=== PATIENT | female | born 1935 | race Caucasian/White ===

== ENCOUNTER → 2017-08-08 | Outpatient (CLI) | payer MEDICARE, OTHER ==
[~2017-08-08] MED LIST: AMLO10 PO; AMLO5 PO; ASCO500 PO; ASPI81EC PO; BENA20 PO; BENAML20/5 PO; CALCIUM PO; CLOP75 PO; COLE625 PO; DIVIGEL1 EAC1 TD; DOCU100 PO; ERGO400 PO; ESOM20 PO; ESZO3 PO; FEBU40TA PO; FERR325 PO; FURO40 PO; NEBI5 PO; NIAC500ER PO; OMEP20ER PO; OMEPRAZOLE MAGN20 MG PO; POLYOX WSR-3011 GM PO; PRAV20 PO; PROP120ER PO; PSYL5.85P PO; TRIHYD253A PO; TRIM100 PO; ZOLP10 PO; ZOLP5 PO
[2017-08-09 11:44] LABS: HPV Genotype 16 Not Detected (NOTDET); HPV Genotype 18 Not Detected (NOTDET)
[2017-08-11 11:14] LABS: HPV High Risk Other Not Detected (NOTDET)
== END | disposition home or self-care (01) ==
LOC: OLS 11:47
PROVIDERS: Nurse Practitioner Women's Health
DX: Z12.72 Encounter for screening for malignant neoplasm of vagina (principal); Z91.89 Other specified personal risk factors, not elsewhere classified
CPT/HCPCS: 87624; G0123

== ENCOUNTER 2017-09-14 09:04 | Observation (INO) | payer MEDICARE, OTHER ==
[~2017-09-14] VITALS: Ht 147.3 cm; Wt 59.5 kg
[~2017-09-14 09:04] MED LIST changes: -CLOP75 PO
[2017-09-14] MEDS ORDERED: CLOP75 PO (15:45)
== END 2017-09-15 10:24 | disposition home or self-care (01) ==
LOC: MHTC 09:04 → MEDS 18:22 → MHTC 18:28 → MEDS 18:29 → EDPENDDIS 09-15 09:46 → ENPENDDIS 09-15 09:46 → MEDS 09-15 10:24
DX: I70.211 Atherosclerosis of native arteries of extremities with intermittent claudication, right leg (principal); I70.8 Atherosclerosis of other arteries; E78.5 Hyperlipidemia, unspecified; I35.1 Nonrheumatic aortic (valve) insufficiency; I10 Essential (primary) hypertension; Z79.899 Other long term (current) drug therapy; Z98.890 Other specified postprocedural states; Z90.710 Acquired absence of both cervix and uterus; Z90.49 Acquired absence of other specified parts of digestive tract
CPT/HCPCS: 37224; 75710; 75774; 85347; 99152; 99153; C1725; C1769; C1887; C1894; C2623; G0378; J1644; J2250; J2720; J3010; J7030; J7040; Q9967

== ENCOUNTER → 2018-05-01 | Outpatient (CLI) | payer MEDICARE, OTHER ==
[~2018-05-01] MED LIST changes: +CLOP75 PO
[2018-05-01 11:24] LABS: BASOPHILS ABSOLUTE AUTO 0.03 K/mm3 (0.00-0.23); BASOPHILS PERCENT AUTO 0 % (0-2); EOSINOPHILS ABSOLUTE AUTO 0.26 K/mm3 (0.00-0.68); EOSINOPHILS PERCENT AUTO 3 % (0-6); Hematocrit 35.6 % (33.0-51.0); Hemoglobin 11.7 g/dL (11.5-16.0); IMMATURE GRAN ABSOLUTE AUTO 0.02 K/mm3 (0.00-0.10); IMMATURE GRAN PERCENT AUTO 0 % (0-1); LYMPHOCYTES ABSOLUTE AUTO 1.55 K/mm3 (0.84-5.20); LYMPHOCYTES PERCENT AUTO 19 % (21-46); MONOCYTES PERCENT AUTO 10 % (4-13); Mean Corpuscular HGB Conc 32.9 g/dL (31.5-36.5); Mean Corpuscular Volume 94 fL (80-100); Mean Platelet Volume 9.8 fL (9.1-12.4); NEUTROPHILS ABSOLUTE AUTO 5.73 K/mm3 (1.96-9.15); NEUTROPHILS PERCENT AUTO 68 % (41-73); Platelet Count 265 K/mm3 (150-400); RDW Coefficient Variation 13.9 % (11.7-14.2); RDW Standard Deviation 47.6 fL (35.1-46.3); Red Blood Cell Count 3.78 M/mm3 (3.80-5.20); White Blood Cell Count 8.39 K/mm3 (4.00-11.30)
[2018-05-01 11:28] LABS: Calcium, Blood 9.5 mg/dL (8.5-10.1); Creatinine, Blood 1.31 mg/dL (0.40-1.00); Potassium, Blood 3.9 mmol/L (3.5-5.5)
== END ==
LOC: LAB SHORT 11:19 → LAB EV 11:19
PROVIDERS: Physician Assistant Surgical
DX: R10.32 Left lower quadrant pain (principal)
CPT/HCPCS: 80048; 85025

== ENCOUNTER 2018-07-29 13:01 | Emergency (ER) | payer MEDICARE, OTHER ==
[~2018-07-29] VITALS: Ht 147.3 cm; Wt 52.2 kg
[2018-07-29] MEDS ORDERED: FEBU40TA (13:17)
[2018-07-29 13:35] LABS: Calcium, Ionized (POC) 1.17 mmol/L (1.10-1.46); Chloride (POC) 106 mmol/L (98-108); Creatinine (POC) 1.2 mg/dL (0.6-1.0); Glucose (ISTAT POC) 119 mg/dL (70-99); Hemoglobin (POC) 13.3 g/dL (12.0-16.0); Potassium (POC) 3.9 mmol/L (3.5-5.5); Sodium (POC) 142 mmol/L (135-148); Total CO2 (POC) 26 mmol/L (21-32)
== END 2018-07-29 16:09 | disposition home or self-care (01) ==
LOC: ER 13:01
PROVIDERS: Emergency Medicine
DX: I63.9 Cerebral infarction, unspecified (principal); F03.90 Unspecified dementia, unspecified severity, without behavioral disturbance, psychotic disturbance, mood disturbance, and anxiety; I10 Essential (primary) hypertension; E78.5 Hyperlipidemia, unspecified; Z87.891 Personal history of nicotine dependence; Z88.5 Allergy status to narcotic agent; Z88.8 Allergy status to other drugs, medicaments and biological substances; Z79.899 Other long term (current) drug therapy; Z88.1 Allergy status to other antibiotic agents
CPT/HCPCS: 36415; 70470; 80047; 85014; 96360; 96361; 99284-25; J7030; Q9967

== ENCOUNTER → 2019-01-02 | Outpatient (CLI) | payer MEDICARE, OTHER ==
[~2019-01-02] MED LIST changes: +ATOR10 PO; +Estrace Vagin42.5 GM PV; +FEBU40TA
[2019-01-03 15:06] LABS: HPV 16 Negative (Negative); HPV 18 Negative (Negative); HPV OTHER HR TYPES Negative (Negative)
== END | disposition home or self-care (01) ==
LOC: LAB 12:25 → LAB SHORT 12:25
PROVIDERS: Nurse Practitioner Women's Health
DX: Z12.72 Encounter for screening for malignant neoplasm of vagina (principal); Z91.89 Other specified personal risk factors, not elsewhere classified
CPT/HCPCS: 87624; G0123

== ENCOUNTER → 2019-07-18 | Outpatient (CLI) | payer MEDICARE, OTHER | END | disposition home or self-care (01) | LOC: LAB EV 13:55 → LAB SHORT 13:55 | DX: N39.0 Urinary tract infection, site not specified (principal) | CPT/HCPCS: 87077; 87086; 87186 ==

== ENCOUNTER → 2019-09-21 | Outpatient (CLI) | payer MEDICARE, OTHER | END | disposition home or self-care (01) | LOC: LAB EV 11:51 → LAB SHORT 11:51 | DX: N39.0 Urinary tract infection, site not specified (principal) | CPT/HCPCS: 87077; 87086; 87186 ==

== ENCOUNTER 2020-01-02 07:59 | Observation (INO) | payer MEDICARE, OTHER ==
[~2020-01-02] VITALS: Ht 147.3 cm; Wt 53.2 kg
--- NOTE | 2020-01-02 11:34 | NUR ---
PT BACK TO RECOVERY ROOM VIA DANIA AFTER PROCEDURE. ALERT AND TALKATIVE, DENIES PAIN OR NEEDS. VSS, CALL LIGHT IN REACH. PT EATING ICE CHIPS WITHOUT DIFFICULTY.
--- NOTE | 2020-01-02 12:45 | NUR ---
PT RESTING SUPINE WITH BED IN REVERSE TRENDELENBERG POSITION, RIGHT GROIN SITE APPEARS SOFT, TENDER TO PALPATE, NO ACTIVE BLEEDING OR OOZING NOTED. PT C/O MID/LOWER BACK PAIN. REPOSITIONED FOR COMFORT. TOLERATES ICE CHIPS NO DIFFICULTIES. VSS. CALL LIGHT IN REACH.
--- NOTE | 2020-01-02 14:13 | NUR ---
PT AMB TO BATHROOM WITH SBA, GAIT STEADY; SITE UNCHANGED WITH ACTIVITY. PT REPORTED MOD SOB WITH ACTIVITY RESOLVED AFTER 2-3 MIN OF REST, SPO2 93-94% RA.
--- NOTE | 2020-01-02 14:30 | NUR ---
UPON GETTING UP TO WHEELCHAIR, PT STARTED TO HAVE AUDIBLE WHEEZES. DR YANEZ NOTIFIED, WILL COME AND ASSESS PATIENT PRIOR TO DISCHARGE. SPO2 CURRENTLY 92% ON ROOM AIR.
--- NOTE | 2020-01-02 14:44 | NUR ---
BASEBALL SIZED AMOUNT OF SWELLING AND TENDERNESS NOTED TO PT'S INNER LEFT THIGH. DR YANEZ ASSESSED AND PALPATED AREA, EXPLAINED TO PATIENT THAT A SMALL WIRE PERFORATION MAY HAVE HAPPENED AND INSTRUCTED PATIENT TO USE WARM COMPRESSES AT HOME AND CALL THE OFFICE IF AREA GROWS OR BECOMES MORE PAINFUL.
--- NOTE | 2020-01-02 14:55 | NUR ---
DR YANEZ AT BEDSIDE, PT RECEIVING BREATHING TREATMENT PER ORDERS. SPO2 CURRENTLY 99% ON O2 AT 2L/MIN VIA NC. PT CONTINUES TO HAVE INCREASED RESPIRATORY EFFORT. WAITING TO HAVE PORTABLE CHEST X-RAY.
--- NOTE | 2020-01-02 15:10 | NUR ---
ARCHITECTURAL RENDERER AT BEDSIDE FOR PORTABLE CHEST X-RAY
--- NOTE | 2020-01-02 15:50 | NUR ---
DR PATHAK AT BEDSIDE FOR ADMIT ASSESSMENT.
[2020-01-02 16:02] LABS: BASOPHILS ABSOLUTE AUTO 0.02 K/mm3 (0.00-0.23); BASOPHILS PERCENT AUTO 0 % (0-2); EOSINOPHILS ABSOLUTE AUTO 0.22 K/mm3 (0.00-0.68); EOSINOPHILS PERCENT AUTO 3 % (0-6); Hematocrit 36.3 % (33.0-51.0); Hemoglobin 10.9 g/dL (11.5-16.0); IMMATURE GRAN ABSOLUTE AUTO 0.03 K/mm3 (0.00-0.10); IMMATURE GRAN PERCENT AUTO 0 % (0-1); LYMPHOCYTES ABSOLUTE AUTO 1.51 K/mm3 (0.84-5.20); LYMPHOCYTES PERCENT AUTO 18 % (21-46); MONOCYTES ABSOLUTE AUTO 0.41 K/mm3 (0.16-1.47); MONOCYTES PERCENT AUTO 5 % (4-13); Mean Corpuscular HGB 29.2 pg (26.0-34.0); Mean Platelet Volume 9.5 fL (9.1-12.4); NEUTROPHILS ABSOLUTE AUTO 6.13 K/mm3 (1.96-9.15); NEUTROPHILS PERCENT AUTO 74 % (41-73); Platelet Count 219 K/mm3 (150-400); RDW Coefficient Variation 14.3 % (11.7-14.2); RDW Standard Deviation 50.7 fL (35.1-46.3); Red Blood Cell Count 3.73 M/mm3 (3.80-5.20); White Blood Cell Count 8.32 K/mm3 (4.00-11.30)
[2020-01-02 16:06] LABS: Mean Corpuscular Volume 97 fL (80-100)
--- NOTE | 2020-01-02 16:33 | NUR ---
ASSUMED CARE PT [facility]. SHE HAD AN ANGIO THIS MORNING WHICH RESULTED IN FLASH PULMONARY EDEMA. HEART CENTER NURSE POINTED OUT THAT THE PT HAS HEMATOMA FORMATION IN LEFT UPPER THIGH. THE ANGIO SITE IS RIGHT FEMORAL. HEART [facility]ENTER NURSE TOOK PT OFF HER 02. PT HAD AUDIBLE WHEEZES BUT STATED THAT SHE WAS FEELING MUCH BETTER. DR. CARDENAS CAME TO TALK TO THE PT AND PUT IN AN ORDER FOR LASIX. PT WAS CALM AND COOPERATIVE WITH HER CARE.
[2020-01-02 16:35] LABS: Albumin, Blood 3.1 g/dL (3.4-5.0); Albumin/Globulin Ratio 0.8 (0.8-1.8); Bilirubin, Total 0.6 mg/dL (0.1-1.0); Calcium, Blood 8.3 mg/dL (8.5-10.1); Creatinine, Blood 1.47 mg/dL (0.40-1.00); Globulin, Blood 3.7 g/dL (2.2-4.0); Potassium, Blood 4.3 mmol/L (3.5-5.5); Total Protein, Blood 6.8 g/dL (6.4-8.2)
--- NOTE | 2020-01-02 18:30 | NUR ---
ECHO AND ULTRASOUND CAME TO SEE PT. WHEN ULTRASOUND GOT DONE PT STARTED HAVING LOUD AUDIBLE WHEEZING. 02 WAS PUT ON AT 2L. HOB WAS RAISED AND PT STARTED COMPLAINING OF RESTLESSNESS. 02 SAT WAS CHECKED AND REPORTED IN THE 70'S. RT WAS CALLED AND PUT PT ON BIPAP AT 12/8 AND 40% O2. NURSE CALLED DR. PATHAK WHO PUT IN ONE TIME ORDER FOR LASIX.
--- NOTE | 2020-01-02 18:52 | NUR ---
echocardiogram complete
--- NOTE | 2020-01-02 21:36 | NUR ---
PATIENT NAUSEOUS AND IV ZOFRAN GIVEN. ON BIPAP. PATIENT ABLE TO TAKE A FEW PO MEDS WITH APPLE SAUCE AFTER IV ZOFRAN. PATIENT DID BECOME NAUSEOUS AGAIN WITH EMESIS. BIPAP TAKEN OFF AND BACK TO O2 5L NC. PATIENT RESTING AT THIS TIME.
--- NOTE | 2020-01-03 00:27 | NUR ---
PATIENT RESTING AND REPORTS N/V RESOLVED AT THIS TIME. ON 5L O2 NC. NO CONCERNS AND RT TOOK BIPAP FOR CLEANING AT THIS TIME. CALL LIGHT IN REACH.
--- NOTE | 2020-01-03 04:24 | NUR ---
SHIFT SUMMARY PATIENT NAUSEOUS AFTER SHIFT STARTED. IV ZOFRAN GIVEN PER EMAR. PATIENT REPORTED ABLE TO TAKE PO MED AFTER THIRTY MINUTES AND WAS NAUSEOUS AGAIN WITH EMESIS. BIPAP REMOVED AND PLACED ON 5L O2 NC. RT IN TO TEST DRIVER BIPAP TO CLEAN, AXOX 3 AND SBA TO BSC ON LASIX. PIV REMAINS INTACT. GROUP LEADER WAFER POLISHING REPORTS SB 50'S. PATIENT LESS NAUSEOUS THE REST OF SHIFT AND ABLE TO SLEEP. COOPERATIVE WITH CARE. DENIES PAIN. VSS/AFEBRILE. CALL LIGHT IN REACH. BED IN LOWEST POSITION. WILL CONTINUE TO MONITOR UNTIL DAY SHIFT NURSE ASSUMES CARE.
[2020-01-03 04:48] LABS: BASOPHILS ABSOLUTE AUTO 0.02 K/mm3 (0.00-0.23); BASOPHILS PERCENT AUTO 0 % (0-2); EOSINOPHILS ABSOLUTE AUTO 0.02 K/mm3 (0.00-0.68); EOSINOPHILS PERCENT AUTO 0 % (0-6); Hematocrit 36.2 % (33.0-51.0); Hemoglobin 11.2 g/dL (11.5-16.0); IMMATURE GRAN ABSOLUTE AUTO 0.04 K/mm3 (0.00-0.10); IMMATURE GRAN PERCENT AUTO 0 % (0-1); LYMPHOCYTES ABSOLUTE AUTO 1.21 K/mm3 (0.84-5.20); LYMPHOCYTES PERCENT AUTO 11 % (21-46); MONOCYTES ABSOLUTE AUTO 0.64 K/mm3 (0.16-1.47); MONOCYTES PERCENT AUTO 6 % (4-13); Mean Corpuscular HGB 29.4 pg (26.0-34.0); Mean Corpuscular HGB Conc 30.9 g/dL (31.5-36.5); Mean Corpuscular Volume 95 fL (80-100); Mean Platelet Volume 9.4 fL (9.1-12.4); NEUTROPHILS ABSOLUTE AUTO 8.85 K/mm3 (1.96-9.15); NEUTROPHILS PERCENT AUTO 82 % (41-73); Platelet Count 212 K/mm3 (150-400); RDW Coefficient Variation 14.3 % (11.7-14.2); RDW Standard Deviation 50.6 fL (35.1-46.3); Red Blood Cell Count 3.81 M/mm3 (3.80-5.20); White Blood Cell Count 10.78 K/mm3 (4.00-11.30)
[2020-01-03 05:10] LABS: Albumin, Blood 3.2 g/dL (3.4-5.0); Anion Gap 4 mmol/L (6-16); Blood Urea Nitrogen 22 mg/dL (8-24); Bun/Creatinine Ratio 15.5 (12.0-20.0); CO2, Blood 29 mmol/L (21-32); Calcium, Blood 8.2 mg/dL (8.5-10.1); Chloride, Blood 110 mmol/L (98-108); Creatinine, Blood 1.42 mg/dL (0.40-1.00); Glomerular Filtration Rate 38 (60-); Glucose, Blood 114 mg/dL (70-99); Magnesium, Blood 2.2 mg/dL (1.6-2.4); Phosphorus, Blood 4.1 mg/dL (2.5-4.9); Potassium, Blood 3.8 mmol/L (3.5-5.5); Sodium, Blood 143 mmol/L (136-145)
--- NOTE | 2020-01-03 07:47 | NUR ---
ASSUMED CARE AT 0700, REPORT FROM ANTONIA GATES. SITTING IN BED IN HIGH FOWLERS. A/A/OX4. 5L O2 VIA NC. L/S CLEAR THROUGH OUT. RIGHT GROIN ANGIO SITE DRY AND TEGADERM IN PLACE. LEFT LEG WARM CAP REFILL <3, DENIES PAIN OR NUMBNESS. SWELLING TO LEFT INNER THIGH CIRCLED WITH SKIN MARKER FROM PROCEDURE YESTERDAY. NO REDNESS EXTENDING BEYOND SKIN MARKER, AREA FIRM. PT STATES WAS TOLD IS A BLOOD CLOT. PLAN OF CARE REVIEWED WITH PT. 02 DECREASED TO 3L VIA NC, WILL CONTINUE TO MONITOR.
--- NOTE | 2020-01-03 11:59 | NUR ---
O2 DECREASED TO 1L NC PER DR. PATHAK, TOLERATING WELL 94% AT THIS TIME.
[2020-01-03] MEDS ORDERED: Aspir 8181 MG PO (15:07)
[2020-01-03] MEDS ORDERED: CLOP75 PO (15:08)
[2020-01-03] MEDS ORDERED: AMLO5 PO (15:44)
--- NOTE | 2020-01-03 15:55 | NUR ---
DISCHARGE INSTRUCTIONS REVIEWED VIA TELEPHONE WITH GRANDDAUGHTER. DISCUSSED HEATING PAD TO HEMATOMA ON LEFT INNER THIGH. SWELLING DECREASED THROUGHOUT DAY AND NOW SHOWING DISCOLORATION. INSTRUCTIONS GIVEN TO GRANDDAUGHTER YESTERDAY BY [facility]ART [facility] FOR SAME. RX FAXED TO [facility].
== END 2020-01-03 16:22 | disposition home or self-care (01) ==
LOC: PCU 07:59 → MHTC 07:59 → PCU 16:02 → MHTC 16:03 → PCU 01-03 03:03
PROVIDERS: Internal Medicine; ADMIT Radiology Diagnostic Radiology
DX: J96.00 Acute respiratory failure, unspecified whether with hypoxia or hypercapnia (principal); I11.0 Hypertensive heart disease with heart failure; I50.9 Heart failure, unspecified; N18.3 Chronic kidney disease, stage 3 (moderate); N17.9 Acute kidney failure, unspecified; I70.211 Atherosclerosis of native arteries of extremities with intermittent claudication, right leg; E88.09 Other disorders of plasma-protein metabolism, not elsewhere classified; D63.1 Anemia in chronic kidney disease; I35.1 Nonrheumatic aortic (valve) insufficiency; R54 Age-related physical debility; K21.9 Gastro-esophageal reflux disease without esophagitis; Z88.1 Allergy status to other antibiotic agents; Z88.5 Allergy status to narcotic agent; Z88.8 Allergy status to other drugs, medicaments and biological substances; Z79.899 Other long term (current) drug therapy
CPT/HCPCS: 36415; 37221; 37225; 37228; 37232; 71045; 75625; 75716; 75774; 76770; 80053; 80069; 83735; 83880; 84484; 85025; 85347; 93306; 94640; 94660; 94762; 96374; 99152; 99153; A9270-GY; C1714; C1725; C1760; C1769; C1874; C1884; C1887; C1894; C2623; G0378; J1644; J1940; J2250; J2405; J3010; J7030; Q9967

== ENCOUNTER → 2020-06-26 | Outpatient (CLI) | payer MEDICARE, OTHER ==
[~2020-06-26] MED LIST changes: +Aspir 8181 MG PO; +FERROUS GLUCON324 M2 PO; +LIPITOR10 MG PO
== END | disposition home or self-care (01) ==
LOC: LAB SHORT 16:23 → LAB EV 16:23
DX: N39.0 Urinary tract infection, site not specified (principal)
CPT/HCPCS: 87077; 87086; 87186

== ENCOUNTER → 2020-08-28 | Outpatient (CLI) | payer MEDICARE, OTHER | END | disposition home or self-care (01) | LOC: LAB 12:45 → LAB SHORT 12:45 | DX: R35.0 Frequency of micturition (principal) | CPT/HCPCS: 87077; 87086; 87186 ==

== ENCOUNTER 2022-06-19 13:09 | Inpatient (IN) | payer MEDICARE, OTHER ==
[~2022-06-19] VITALS: Ht 147.3 cm; Wt 53.6 kg
[~2022-06-19 13:09] MED LIST changes: +ELIQUIS2.5 MG PO; +LISI5 PO; +METO25ER PO; +XANAX0.25 MG PO
[2022-06-19 13:59] LABS: BASOPHILS ABSOLUTE AUTO 0.02 K/mm3 (0.00-0.23); BASOPHILS PERCENT AUTO 0 % (0-2); EOSINOPHILS ABSOLUTE AUTO 0.03 K/mm3 (0.00-0.68); EOSINOPHILS PERCENT AUTO 0 % (0-6); IMMATURE GRAN ABSOLUTE AUTO 0.03 K/mm3 (0.00-0.10); IMMATURE GRAN PERCENT AUTO 0 % (0-1); LYMPHOCYTES ABSOLUTE AUTO 0.87 K/mm3 (0.84-5.20); LYMPHOCYTES PERCENT AUTO 13 % (21-46); MONOCYTES ABSOLUTE AUTO 0.46 K/mm3 (0.16-1.47); MONOCYTES PERCENT AUTO 7 % (4-13); Mean Corpuscular HGB 23.3 pg (26.0-34.0); Mean Corpuscular HGB Conc 29.5 g/dL (31.5-36.5); Mean Corpuscular Volume 79 fL (80-100); Mean Platelet Volume 9.4 fL (9.1-12.4); NEUTROPHILS ABSOLUTE AUTO 5.28 K/mm3 (1.96-9.15); NEUTROPHILS PERCENT AUTO 79 % (41-73); Platelet Count 354 K/mm3 (150-400); RDW Coefficient Variation 16.4 % (11.7-14.2); RDW Standard Deviation 47.7 fL (35.1-46.3); Red Blood Cell Count 1.89 M/mm3 (3.80-5.20); White Blood Cell Count 6.69 K/mm3 (4.00-11.30)
[2022-06-19 14:00] LABS: Hematocrit 14.9 % (33.0-51.0)
[2022-06-19 14:03] LABS: Hemoglobin 4.4 g/dL (11.5-16.0)
[2022-06-19 14:28] LABS: Albumin, Blood 3.4 g/dL (3.4-5.0); Albumin/Globulin Ratio 0.9 (0.8-1.8); Bilirubin, Total 0.4 mg/dL (0.1-1.0); Calcium, Blood 8.8 mg/dL (8.5-10.1); Creatinine, Blood 2.05 mg/dL (0.40-1.00); Globulin, Blood 3.7 g/dL (2.2-4.0); Potassium, Blood 4.2 mmol/L (3.5-5.5); Total Protein, Blood 7.1 g/dL (6.4-8.2)
[2022-06-19 14:44] LABS: International Normalized Ratio 1.13; Prothrombin Time Results 11.8 Sec (9.7-11.5)
[2022-06-19 16:39] LABS: Percent Saturation 2.4 % (15.0-50.0)
--- NOTE | 2022-06-19 18:39 | NUR ---
PT ARRIVED IN THE UNIT FROMERD REPORT RECEIVED FROM NICANOR KNIGHT. PT IS ALERT AND ORIENTED X3, CAN BE FORGETFUL AT TIMES, MILD LYTTON. PT IS HERE FOR GI BLEED POSITIVE HEMOCCULT AND TO RECEIVED 3U PRBC HGB WAS AT 4.4 IN THE ER. PT WAS ABLE TO AMBULATE TRANSFER ASSISTED TO PCU BED. PT DENIES ANY KIND OF PAIN UPON ARRIVAL OR ANY KIND OF SYMPTOMS EXCEPT BLACK STOOLS, PT LOOKING PALE. FIRST BAG OF PRBC INFUSING AT THIS TIME WAS STARTED IN THE ER. VITALS HRR SR 980'S, SBP 130'S-140'S, SATS ABOVE 95% ONRA, AFEBRILE. GI CONSULTED, PT ON CLEAR LIQUID DIET FOR NOW. PROTONIX GTT INFUSING WELL. PT NOW RESTING IN BED NO OTHER ISSUES ENCOUNTERED. PT ABLE TO MAKE NEEDS KNOWN, COOPERATIVE WITH CARES, WILL REPORT TO ONCOMING SHIFT
--- NOTE | 2022-06-19 20:35 | NUR ---
ASSUMPTION OF CARE THIS RN ASSUMED CARE OF PT AT 1915; PT AWAKE IN BED, INTERACTING AND RESPONDING APPROPRIATELY. A&O TO SELF, PLACE AND SURROUNDING, ALTHOUGH MILDLY CONFUSED ABOUT EVENT. PT STATED SHE THOUGHT SHE WAS IN THE HOSPITAL FOR HER LEG. THIS RN REORIENTED HER AND EXPLAINED WHAT BROUGHT HER IN. FIRST BLOOD TRANSFUSION CURRENTLY INFUSING. VSS; BP 117/61, HR 80. RR 17, 02 97%. TEMP 97.4. PROTONIX GTT INFUSING PER EMAR. PT DENIES SOB, N/V, OR ANY PAIN. PT COLOR APPEARS TO BE NORMAL, ALTHOUGH CONJUNCTIVA IS PALE IN COLOR. NO DISTRESS NOTED. PT COMPLAINS OF R LEG PAIN FROM KNEE DOWN INTO HER TOES AND STATES BOTTOM OF FOOT IS NUMB. STATES THIS IS NOT NEW SINCE BEING AT HOSPITAL BUT IS BOTHERING HER ALOT. STATES SHE WOULD LIKE TO KNOW WHAT IS GOING ON WITH IT. CALL LIGHT IN REACH.
[2022-06-20 02:07] LABS: Hematocrit 22.6 % (33.0-51.0); Hemoglobin 7.6 g/dL (11.5-16.0)
--- NOTE | 2022-06-20 05:54 | NUR ---
SHIFT SUMMARY PT A&O X2-3. PT IS FORGETFUL AND HAS PERIODS OF CONFUSION, ALTHOUGH PLEASANTLY CONFUSED. EASILY REDIRECTED AND REORIENTED. PT HAD HARD TIME SLEEPING LAST NIGHT DESPITE SLEEP AIDS PER EMAR. PT COMPLAINS OF R FOOT PAIN. PT RECIEVED 3 UNITS OF PRBCS; VSS THROUGHOUT. PT SEEMS TO HAVE TOLERATED TRANSFUSIONS WELL. PROTONIX GTT INFUSING PER EMAR. PT UP TO BSC W/MINIMAL ASSISTANCE. THIS RN NOTED SMALL AMOUNT OF BLOOD ON TISSUE PAPER AFTER PT VOIDED AND WIPED; URINE HAD MILDLY FOUL ODOR AND APPEARED HAZY. WILL PASS ON TO DAYSHIFT NURSE. PG IN R UA DRAWS AND FLUSHES, CURRENTLY INFUSING AND FINISHING LAST UNIT OF BLOOD. BED ALARM SET AND CALL LIGHT IN REACH.
[2022-06-20 07:24] LABS: BASOPHILS ABSOLUTE AUTO 0.03 K/mm3 (0.00-0.23); BASOPHILS PERCENT AUTO 0 % (0-2); EOSINOPHILS ABSOLUTE AUTO 0.11 K/mm3 (0.00-0.68); EOSINOPHILS PERCENT AUTO 1 % (0-6); Hematocrit 26.4 % (33.0-51.0); IMMATURE GRAN ABSOLUTE AUTO 0.08 K/mm3 (0.00-0.10); IMMATURE GRAN PERCENT AUTO 1 % (0-1); LYMPHOCYTES ABSOLUTE AUTO 1.16 K/mm3 (0.84-5.20); LYMPHOCYTES PERCENT AUTO 14 % (21-46); MONOCYTES ABSOLUTE AUTO 0.56 K/mm3 (0.16-1.47); MONOCYTES PERCENT AUTO 7 % (4-13); Mean Corpuscular HGB 27.3 pg (26.0-34.0); Mean Corpuscular HGB Conc 34.1 g/dL (31.5-36.5); Mean Corpuscular Volume 80 fL (80-100); Mean Platelet Volume 9.1 fL (9.1-12.4); NEUTROPHILS ABSOLUTE AUTO 6.39 K/mm3 (1.96-9.15); NEUTROPHILS PERCENT AUTO 77 % (41-73); Platelet Count 293 K/mm3 (150-400); RDW Coefficient Variation 15.9 % (11.7-14.2); RDW Standard Deviation 45.9 fL (35.1-46.3); White Blood Cell Count 8.33 K/mm3 (4.00-11.30)
[2022-06-20 07:46] LABS: Bun/Creatinine Ratio 16.3 (12.0-20.0); Calcium, Blood 8.7 mg/dL (8.5-10.1); Creatinine, Blood 2.09 mg/dL (0.40-1.00); Potassium, Blood 3.9 mmol/L (3.5-5.5)
--- NOTE | 2022-06-20 14:04 | NUR ---
pt update day surgery in room to take pt to scope. pt asked that her grandson iqra, be called, and to let him know she wants to see him when she wakes up. Call placed to phone number given for grandson, phone when to voicemail. will continue to try.
[2022-06-20] MEDS ORDERED: AMLODIPINE BESYL5 MG PO (14:45)
[2022-06-20] MEDS ORDERED: Ventolin/Prove6.7 GM INH (14:46)
--- NOTE | 2022-06-20 14:58 | NUR ---
06/20/22 1458 Namrata Lopez WITH ; SEE ANESTHESIA RECORDS.
--- NOTE | 2022-06-20 17:55 | NUR ---
SHIFT SUMMARY THIS RN SPOKE TO RO CHERRY. RO AND FAMILY VISITED PT THIS EVENING. PT OVERJOYED. PT ALERT BUT SOMEWHAT FORGETFUL. SP02>90% ON RA. VSS. PT DID HAVE 2 SOFT, SMALL BROWN BMS. AMBULATED TO BATHROOM TO VOID/BM. BLADDER SCAN SHOWED <100 MLS. PT C/O OF A HEADACHE. MEDICATED W/ TYLENOL X1. PT WENT DOWN FOR ENDOSCOPY THIS AFTERNOON. BACK IN ROOM AROUND 1700. PT AMBULATED W/ 2 RN ASSIST FROM SURGERY STRETCHER TO PCU BED. VSS. FLUIDS STARTED PER EMAR. CALL LIGHT IN REACH.
[2022-06-20 23:58] LABS: Source, Urine Voided
[2022-06-21 00:14] LABS: Appearance, Urine Hazy (Clear); Bilirubin, Urine Neg (Neg); Blood, Urine 2+ (Neg); Color, Urine Yellow (P-Yellow); Glucose Qualitative, Urine Neg (Neg); Ketones, Urine Neg (Neg); Leukocyte Esterase, Urine 3+ (Neg); Nitrite, Urine Neg (Neg); Protein, Urine 2+ (Neg); Urobilinogen, Urine NORM (Normal)
[2022-06-21 00:29] LABS: Bacteria Many /hpf; Squamous Epithelial Cells Few /hpf (Few)
[2022-06-21 05:28] LABS: BASOPHILS ABSOLUTE AUTO 0.04 K/mm3 (0.00-0.23); BASOPHILS PERCENT AUTO 0 % (0-2); EOSINOPHILS ABSOLUTE AUTO 0.03 K/mm3 (0.00-0.68); EOSINOPHILS PERCENT AUTO 0 % (0-6); Hematocrit 27.9 % (33.0-51.0); Hemoglobin 9.1 g/dL (11.5-16.0); IMMATURE GRAN ABSOLUTE AUTO 0.11 K/mm3 (0.00-0.10); IMMATURE GRAN PERCENT AUTO 1 % (0-1); LYMPHOCYTES ABSOLUTE AUTO 1.05 K/mm3 (0.84-5.20); LYMPHOCYTES PERCENT AUTO 8 % (21-46); MONOCYTES ABSOLUTE AUTO 0.72 K/mm3 (0.16-1.47); MONOCYTES PERCENT AUTO 5 % (4-13); Mean Corpuscular HGB 26.6 pg (26.0-34.0); Mean Corpuscular HGB Conc 32.6 g/dL (31.5-36.5); Mean Corpuscular Volume 82 fL (80-100); Mean Platelet Volume 9.1 fL (9.1-12.4); NEUTROPHILS ABSOLUTE AUTO 11.97 K/mm3 (1.96-9.15); NEUTROPHILS PERCENT AUTO 86 % (41-73); NRBC ABSOLUTE 0.04 K/mm3 (0.00-0.02); NRBC Auto 0.3 /100 WBC (0.0-0.2); Platelet Count 290 K/mm3 (150-400); RDW Coefficient Variation 16.3 % (11.7-14.2); RDW Standard Deviation 48.4 fL (35.1-46.3); Red Blood Cell Count 3.42 M/mm3 (3.80-5.20); White Blood Cell Count 13.92 K/mm3 (4.00-11.30)
--- NOTE | 2022-06-21 05:51 | NUR ---
SHIFT SUMMARY VSS. PT RESTLESS AND UP TO BSC VERY FREQUENTLY, STATES "HAS TO PEE ALOT" AND "FEELS LIKE I NEED TO PEE". PT IS VOIDING VERY SMALL AMOUNTS, FREQUENTLY, AT TIMES NOT VOIDING AT ALL DESPITE FEELING THE NEED TO VOID. DENIES DYSURIA OR BURING. ODOR NOTED FROM URINE AND APPEARS HAZY. ORDER FOR UA W.CULTURE. OTHER THAN ABOVE CONCERNS, NO ACUTE CHANGES DURING SHIFT. PT NOW FINALLY RESTING AND CALL LIGHT IN REACH. LAST PART OF SHIFT, PT NOT USING CALL LIGHT, BUT RATHER GETTING UP WITH CALLING OR NOTIFYING STAFF. BED ALARM SET AND PT REMINDED TO USE CALL LIGHT FOR SAFETY. NS STILL INFUSING PER EMAR.
[2022-06-21 06:00] LABS: Albumin, Blood 2.9 g/dL (3.4-5.0); Anion Gap 8 mmol/L (6-16); Blood Urea Nitrogen 25 mg/dL (8-24); Bun/Creatinine Ratio 14.4 (12.0-20.0); CO2, Blood 25 mmol/L (21-32); Calcium, Blood 8.7 mg/dL (8.5-10.1); Chloride, Blood 109 mmol/L (98-108); Creatinine, Blood 1.74 mg/dL (0.40-1.00); Glomerular Filtration Rate 28 (60-); Glucose, Blood 122 mg/dL (70-99); Phosphorus, Blood 3.1 mg/dL (2.5-4.9); Potassium, Blood 3.2 mmol/L (3.5-5.5); Sodium, Blood 142 mmol/L (136-145)
[2022-06-21] MEDS ORDERED: MELATONIN5 M1 PO (12:14)
[2022-06-21] MEDS ORDERED: VISBIOME 112.51 EACH PO (12:45)
[2022-06-21] MEDS ORDERED: CEPH250A PO (12:45)
== END 2022-06-21 13:14 | disposition home or self-care (01) | DRG 811 ==
LOC: ER 13:09 → PCU 16:10
PROVIDERS: Emergency Medicine; Internal Medicine; Student in an Organized Health Care Education/Training Program; ADMIT Family Medicine
PROC: 30233N1 Transfusion of Nonautologous Red Blood Cells into Peripheral Vein, Percutaneous Approach (ICD-10-PCS; 2022-06-19)
PROC: 0DJD8ZZ Inspection of Lower Intestinal Tract, Via Natural or Artificial Opening Endoscopic (ICD-10-PCS; principal; 2022-06-20 15:15)
DX: D50.0 Iron deficiency anemia secondary to blood loss (chronic) (principal); K31.811 Angiodysplasia of stomach and duodenum with bleeding; I13.0 Hypertensive heart and chronic kidney disease with heart failure and stage 1 through stage 4 chronic kidney disease, or unspecified chronic kidney disease; N17.9 Acute kidney failure, unspecified; E87.6 Hypokalemia; N18.30 Chronic kidney disease, stage 3 unspecified; D63.1 Anemia in chronic kidney disease; Z66 Do not resuscitate; R19.5 Other fecal abnormalities; I73.9 Peripheral vascular disease, unspecified; I48.91 Unspecified atrial fibrillation; E78.5 Hyperlipidemia, unspecified; K44.9 Diaphragmatic hernia without obstruction or gangrene; K21.9 Gastro-esophageal reflux disease without esophagitis; I50.9 Heart failure, unspecified; K57.90 Diverticulosis of intestine, part unspecified, without perforation or abscess without bleeding; R94.31 Abnormal electrocardiogram [ECG] [EKG]; K22.710 Barrett's esophagus with low grade dysplasia; B96.20 Unspecified Escherichia coli [E. coli] as the cause of diseases classified elsewhere; Z88.1 Allergy status to other antibiotic agents; Z79.899 Other long term (current) drug therapy; Z79.01 Long term (current) use of anticoagulants; Z88.5 Allergy status to narcotic agent; Z79.811 Long term (current) use of aromatase inhibitors; Z98.890 Other specified postprocedural states; Z90.710 Acquired absence of both cervix and uterus; Z90.49 Acquired absence of other specified parts of digestive tract; Z85.42 Personal history of malignant neoplasm of other parts of uterus; Z87.891 Personal history of nicotine dependence; Z79.51 Long term (current) use of inhaled steroids; Z79.02 Long term (current) use of antithrombotics/antiplatelets
CPT/HCPCS: 36415; 80048; 80053; 80069; 81001; 82607; 82728; 82746; 83540; 83550; 84484; 85014; 85018; 85025; 85610; 85730; 86850; 86900; 86901; 86923; 87077; 87086; 87186; 93005; 93010; A9270; C1751; C9113; J2704; J2916; J7030; J7120; P9016

== ENCOUNTER 2022-06-22 00:44 | Day surgery (SDC) | payer MEDICARE, OTHER ==
[~2022-06-22 00:44] MED LIST changes: +AMLODIPINE BESYL5 MG PO; +CEPH250A PO; +MELATONIN5 M1 PO; +VISBIOME 112.51 EACH PO; +Ventolin/Prove6.7 GM INH
== END 2022-06-22 13:13 | disposition home or self-care (01) ==
LOC: ATC 00:44
DX: D50.9 Iron deficiency anemia, unspecified (principal); I12.9 Hypertensive chronic kidney disease with stage 1 through stage 4 chronic kidney disease, or unspecified chronic kidney disease; E78.5 Hyperlipidemia, unspecified; K21.9 Gastro-esophageal reflux disease without esophagitis; Z88.5 Allergy status to narcotic agent; Z88.1 Allergy status to other antibiotic agents; N18.30 Chronic kidney disease, stage 3 unspecified; N17.9 Acute kidney failure, unspecified; Z66 Do not resuscitate
CPT/HCPCS: J2916

== ENCOUNTER 2022-06-23 02:04 | Day surgery (SDC) | payer MEDICARE, OTHER | END 2022-06-23 12:38 | disposition home or self-care (01) | LOC: ATC 02:04 | DX: D50.9 Iron deficiency anemia, unspecified (principal); I12.9 Hypertensive chronic kidney disease with stage 1 through stage 4 chronic kidney disease, or unspecified chronic kidney disease; N18.30 Chronic kidney disease, stage 3 unspecified; I73.9 Peripheral vascular disease, unspecified; K21.9 Gastro-esophageal reflux disease without esophagitis; I48.91 Unspecified atrial fibrillation; Z88.1 Allergy status to other antibiotic agents; Z88.5 Allergy status to narcotic agent; Z79.02 Long term (current) use of antithrombotics/antiplatelets; Z79.01 Long term (current) use of anticoagulants; Z66 Do not resuscitate | CPT/HCPCS: J2916 ==

== ENCOUNTER 2022-06-24 00:13 | Day surgery (SDC) | payer MEDICARE, OTHER | END 2022-06-24 15:10 | disposition home or self-care (01) | LOC: ATC 00:13 | DX: D50.9 Iron deficiency anemia, unspecified (principal); I12.9 Hypertensive chronic kidney disease with stage 1 through stage 4 chronic kidney disease, or unspecified chronic kidney disease; N18.30 Chronic kidney disease, stage 3 unspecified; I73.9 Peripheral vascular disease, unspecified; K21.9 Gastro-esophageal reflux disease without esophagitis; I48.91 Unspecified atrial fibrillation; Z88.1 Allergy status to other antibiotic agents; Z88.5 Allergy status to narcotic agent; Z66 Do not resuscitate | CPT/HCPCS: J2916 ==

== ENCOUNTER 2023-01-09 03:13 | Inpatient (IN) | payer MEDICARE, OTHER ==
[~2023-01-09] VITALS: Ht 147.3 cm; Wt 46.5 kg
[2023-01-09] VITALS (10 sets, daily range): BP systolic 128–156; BP diastolic 2–102
[2023-01-09 03:58] LABS: BASOPHILS ABSOLUTE AUTO 0.03 K/mm3 (0.00-0.23); BASOPHILS PERCENT AUTO 0 % (0-2); EOSINOPHILS ABSOLUTE AUTO 0.08 K/mm3 (0.00-0.68); EOSINOPHILS PERCENT AUTO 1 % (0-6); Hematocrit 40.2 % (33.0-51.0); Hemoglobin 13.1 g/dL (11.5-16.0); IMMATURE GRAN ABSOLUTE AUTO 0.04 K/mm3 (0.00-0.10); IMMATURE GRAN PERCENT AUTO 0 % (0-1); LYMPHOCYTES ABSOLUTE AUTO 1.54 K/mm3 (0.84-5.20); LYMPHOCYTES PERCENT AUTO 16 % (21-46); MONOCYTES ABSOLUTE AUTO 0.64 K/mm3 (0.16-1.47); MONOCYTES PERCENT AUTO 7 % (4-13); Mean Corpuscular HGB Conc 32.6 g/dL (31.5-36.5); Mean Corpuscular Volume 95 fL (80-100); Mean Platelet Volume 9.6 fL (9.1-12.4); NEUTROPHILS ABSOLUTE AUTO 7.29 K/mm3 (1.96-9.15); NEUTROPHILS PERCENT AUTO 76 % (41-73); Platelet Count 338 K/mm3 (150-400); RDW Coefficient Variation 15.8 % (11.7-14.2); RDW Standard Deviation 54.4 fL (35.1-46.3); Red Blood Cell Count 4.23 M/mm3 (3.80-5.20); White Blood Cell Count 9.62 K/mm3 (4.00-11.30)
[2023-01-09 04:09] LABS: Albumin/Globulin Ratio 0.7 (0.8-1.8); Bilirubin, Total 0.8 mg/dL (0.1-1.0); Bun/Creatinine Ratio 26.9 (12.0-20.0); Calcium, Blood 9.1 mg/dL (8.5-10.1); Creatinine, Blood 2.12 mg/dL (0.40-1.00); Globulin, Blood 4.2 g/dL (2.2-4.0); Potassium, Blood 3.6 mmol/L (3.5-5.5); Total Protein, Blood 7.2 g/dL (6.4-8.2)
[2023-01-09 04:59] LABS: Magnesium, Blood 2.6 mg/dL (1.6-2.4)
[2023-01-09 09:14] LABS: Bicarbonate Venous 19.7 mmol/L (24.0-30.0); PCO2 Venous 42.7 mmHg (38-42); pH Blood Venous 7.31 (7.34-7.37)
[2023-01-09 09:26] LABS: Anti-Xa UFH, PHA Monitoring <0.10 IU/mL; International Normalized Ratio 1.14; Prothrombin Time Results 11.9 Sec (9.7-11.5)
--- NOTE | 2023-01-09 14:19 | NUR ---
CALLED DR. HERNADEZ ABOUT RATE CONTROL ON TELE PT'S HR 120-140'S I CALLED DR. ALLAN AND GOT THE PT'S LOPRESSOR PUSH CHANGED TO 5MG Q4P. PT HAD A TOTAL OF 5MG'S LOPRESSOR AND IT HAS NOT CHANGE HER HR. DR. ALLAN DOES NOT WANT TO TRY CARDIZEM UNTIL ECHO IS COMPLETE. IMIAGING WILL NOT COMPLETE ECHO UNTIL HR IS CONTROLLED. I CALLED DR. CUBA AND NOTIFIED HIM OF THE ISSUE, AND HE STATED HE WILL LOOK AT THE PT'S CHART AFTER HIS MEETING. PT ASYMPTOMATIC. SEE NOTES FOR ANY UPDATES.
--- NOTE | 2023-01-09 16:38 | NUR ---
Patient is sitting on the EOB and alert. She tells me about her medical problems, her family and her Bahai delmy. I provide therapeutic listening and prayer. PAtient responded well and showed signs of an elevated mood. I will continue to remain available to patient and family.
--- NOTE | 2023-01-09 17:18 | NUR ---
Shift Summary PT IS A NEW ADMIT THIS SHIFT FOR AFIB RVR, AND DVT S. SHE IS A&OX4,NAPAKIAK, AND CALLS APPROPRIATELY. PT HAS BEEN CALLING TO USE THE BSC OR BEDPAN FREQUENTLY DUE TO LAXATIVES SHE TOOK AT HOME FOR CONSTIPATION. HER ONLY COMPLAINT AT THIS TIME IS HER RECTUM BEING TENDER. CREAM APPLIED. PT IS ON ROOM AIR W/ SP02>90%. SHE IS ON A HEP GTT AT 15. FOR HR CONTROL SHE WAS GIVEN DIGOXIN AND HAS BEEN GIVEN LOPRESSOR PUSHES. THE PT IS AFIB 110-140 S ON TELE. HER HR TACHS UP WHEN SHE IS BEING ACTIVE OR UP IN THE ROOM. BP STABLE AT THIS TIME. PT DENIES ANY ANGINA OR CHEST PRESSURE. SHE HAD HER GRANDSON RO AND FRIEND MANGO VISIT AND THEY WERE UPDATED ON CARE. HER BED IS IN LOW AND CALL LIGHT IS IN REACH. SEE NOTES FOR ANY UPDATES.
--- NOTE | 2023-01-09 20:39 | NUR ---
ASSUMED PT CARE FROM SHANNAN KNIGHT ON . PT IS A&OX4, SIGNIFICANT BILL MOORE'S SLOUGH NOTED. PT ABLE TO FOLLOW DIRECTIONS AND MAKE NEEDS KNOWN. DENIES ANY SOB OR CHEST PAIN AT THIS TIME. HR RESTING IN LOW 100'S, INCREASING TO 120'S WHEN UP TO BSC. O2 SATS > 92% ON RA. UP TO BSC WITH STAND BY ASSIST. VOIDING CLEAR, YELLOW URINE. HAVING FREQUENT LOOSE STOOLS, PT REPORTS TAKING LAXATIVES AT HOME DUE TO CONSTIPATION THAT CAUSED LOOSE STOOLS. HEPRIN GTT INFUSING ORDERED. CALL LIGHT IN REACH.
[2023-01-10 00:29] VITALS: BP 109/81
[2023-01-10 03:45] VITALS: BP 149/71
[2023-01-10 04:01] LABS: BASOPHILS ABSOLUTE AUTO 0.03 K/mm3 (0.00-0.23); BASOPHILS PERCENT AUTO 0 % (0-2); EOSINOPHILS ABSOLUTE AUTO 0.16 K/mm3 (0.00-0.68); EOSINOPHILS PERCENT AUTO 2 % (0-6); Hematocrit 35.6 % (33.0-51.0); Hemoglobin 11.5 g/dL (11.5-16.0); IMMATURE GRAN ABSOLUTE AUTO 0.03 K/mm3 (0.00-0.10); IMMATURE GRAN PERCENT AUTO 0 % (0-1); LYMPHOCYTES ABSOLUTE AUTO 1.55 K/mm3 (0.84-5.20); LYMPHOCYTES PERCENT AUTO 20 % (21-46); MONOCYTES ABSOLUTE AUTO 0.71 K/mm3 (0.16-1.47); MONOCYTES PERCENT AUTO 9 % (4-13); Mean Corpuscular HGB 30.4 pg (26.0-34.0); Mean Corpuscular HGB Conc 32.3 g/dL (31.5-36.5); Mean Corpuscular Volume 94 fL (80-100); Mean Platelet Volume 9.3 fL (9.1-12.4); NEUTROPHILS ABSOLUTE AUTO 5.36 K/mm3 (1.96-9.15); NEUTROPHILS PERCENT AUTO 68 % (41-73); Platelet Count 275 K/mm3 (150-400); RDW Coefficient Variation 15.9 % (11.7-14.2); Red Blood Cell Count 3.78 M/mm3 (3.80-5.20); White Blood Cell Count 7.84 K/mm3 (4.00-11.30)
[2023-01-10 04:30] LABS: Alanine Aminotransfer (ALT/SGP 37 U/L (12-78); Albumin, Blood 2.4 g/dL (3.4-5.0); Albumin/Globulin Ratio 0.7 (0.8-1.8); Alk Phos 98 U/L (50-136); Anion Gap 12 mmol/L (6-16); Aspartate Aminotrans (AST/SGOT 33 U/L (12-37); Bilirubin, Total 0.8 mg/dL (0.1-1.0); Blood Urea Nitrogen 48 mg/dL (8-24); Bun/Creatinine Ratio 26.5 (12.0-20.0); CO2, Blood 20 mmol/L (21-32); Calcium, Blood 8.2 mg/dL (8.5-10.1); Chloride, Blood 111 mmol/L (98-108); Creatinine, Blood 1.81 mg/dL (0.40-1.00); Digoxin (Lanoxin) 1.47 ug/mL (0.80-2.00); Globulin, Blood 3.5 g/dL (2.2-4.0); Glomerular Filtration Rate 27 (60-); Glucose, Blood 88 mg/dL (70-99); Potassium, Blood 3.3 mmol/L (3.5-5.5); Sodium, Blood 143 mmol/L (136-145); Total Protein, Blood 5.9 g/dL (6.4-8.2)
--- NOTE | 2023-01-10 06:01 | NUR ---
SHIFT SUMMARY: PT HAS HAD NOT ACUTE CHANGES THROUGHOUT MY SHIFT. HR HAS MAINTAINED IN A-FIB 90'S TO LOW 100'S WHEN AT REST, UP TO 120'S WHEN UP TO BSC. REMAINS ASYMPTOMATIC. O2 SATS > 92% ON RA. DENIES ANY PAIN IN LEFT LEG THROUGHOUT NIGHT. ABLE TO STAND AND PIVOT TO BSC. VOIDING CLEAR, YELLOW URINE. DIARRHEA IMPROVING.
[2023-01-10 08:10] VITALS: BP 148/86
[2023-01-10 11:31] VITALS: BP 120/91
--- NOTE | 2023-01-10 15:18 | NUR ---
Reviewed EMR due to new referral for [facility], AD/POLST completion. Per today's PN, pt's left leg/thigh pain is much improved. Pt found to have DVT during admission in addition to Afib with RVR on admission. Pt on anticoag rx currently. Code status DNR. Pt lives in her own home with gson and is independent in the home at baseline. CM has screened this admission also. Attempted to visit. Pt is sound asleep with blinds closed. She appears comfortable in sleep. She did not wake to voice and I did not disturb her. PC can return if [facility] needs identified. D/c anticipated next 1-2 days.
[2023-01-10 15:42] VITALS: BP 118/65
--- NOTE | 2023-01-10 18:12 | NUR ---
PT RESTING WELL IN BED T/O THE DAY. PT REMAINS ON 15ML/HR OF HEPARIN INFUSION AT THIS TIME. PT IS A ONE PERSON ASSIST TO BESIDE COMMODE, PT ABLE TO MAKE NEEDS KNOWN USING CALL LIGHT FREQUENTLY. DENIES CP OR SOB. LT LEG DOES APPEAR TO HAVE SLIGHT AMOUNT OF EDEMA COMPARED TO RT, PT DENIES ANY LEG PAIN. NUCLEAR RADIOLOGY REPORTS LOW PROBABILITY OF PE. VSS. PT A/O X4.
[2023-01-10 19:37] VITALS: BP 119/77
--- NOTE | 2023-01-10 22:05 | NUR ---
UPDATE PT UP TO BSC FOR BM. BM NOTED TO HAVE BLOOD MIXED IN WITH FIRM/SMALL PELLETS OF STOOL. FORMED BLOOD CLOTS ALSO NOTED WELL. NO SIGNS OF SKIN BREAKDOWN OR WOUNDS AROUND ANUS. PT DENIES HAVING ANY HEMORROIDS OR HX OF HEMORROIDS. PT CURRENTLY ON HEPARIN gtt FOR ANTICOAGULATION. DR. CONROY NOTIFIED OF BLOODY STOOL WITH ORDERS FOR H&H AND TO CALL HER WITH RESULTS. HEPARIN gtt TO REMAIN RUNNING ORDERED BY MD. NO FURTHER ORDERS AT THIS TIME.
[2023-01-10 22:47] LABS: Hematocrit 36.7 % (33.0-51.0); Hemoglobin 11.9 g/dL (11.5-16.0)
[2023-01-11] VITALS (9 sets, daily range): BP systolic 117–161; BP diastolic 70–102
--- NOTE | 2023-01-11 02:49 | NUR ---
UPDATE PT UP AGAIN TO BSC FOR BM. MINIMAL STOOL, BUT BSC NOTED TO HAVE SEVERAL THICK BLOOD CLOTS WITH LARGEST, MEASURING ~7-8cm IN DIAMETER. PT DOES NOT REPORT ANY SORT OF ABD TENDERNESS, DIZZNIESS, OR WEAKNESS. PT ON HEPARIN gtt AT THIS TIME. FOOD TECHNICIAN JV NOTIFIED WELL CALL PLACED TO DR. CONROY. ORDERED GUAIAC STOOL SAMPLE. SAMPLE COLLECTED AND SENT TO LAB. PER MD ORDER, HEPARIN gtt TO REMAIN INFUSING AT THIS TIME. NO OTHER ORDERS GIVEN AT THIS TIME.
[2023-01-11 03:51] LABS: BASOPHILS ABSOLUTE AUTO 0.02 K/mm3 (0.00-0.23); BASOPHILS PERCENT AUTO 0 % (0-2); EOSINOPHILS ABSOLUTE AUTO 0.27 K/mm3 (0.00-0.68); EOSINOPHILS PERCENT AUTO 4 % (0-6); Hemoglobin 10.6 g/dL (11.5-16.0); IMMATURE GRAN ABSOLUTE AUTO 0.03 K/mm3 (0.00-0.10); IMMATURE GRAN PERCENT AUTO 1 % (0-1); LYMPHOCYTES ABSOLUTE AUTO 1.32 K/mm3 (0.84-5.20); LYMPHOCYTES PERCENT AUTO 20 % (21-46); MONOCYTES ABSOLUTE AUTO 0.71 K/mm3 (0.16-1.47); MONOCYTES PERCENT AUTO 11 % (4-13); Mean Corpuscular HGB 30.5 pg (26.0-34.0); Mean Corpuscular HGB Conc 32.1 g/dL (31.5-36.5); Mean Corpuscular Volume 95 fL (80-100); Mean Platelet Volume 9.1 fL (9.1-12.4); NEUTROPHILS ABSOLUTE AUTO 4.25 K/mm3 (1.96-9.15); NEUTROPHILS PERCENT AUTO 64 % (41-73); Platelet Count 250 K/mm3 (150-400); RDW Coefficient Variation 15.7 % (11.7-14.2); Red Blood Cell Count 3.47 M/mm3 (3.80-5.20)
[2023-01-11 03:53] LABS: Base Excess Venous -3.2 mmol/L; Bicarbonate Venous 22.4 mmol/L (24.0-30.0); PCO2 Venous 31.2 mmHg (38-42); pH Blood Venous 7.44 (7.34-7.37)
[2023-01-11 04:24] LABS: Anion Gap 7 mmol/L (6-16); Blood Urea Nitrogen 38 mg/dL (8-24); Bun/Creatinine Ratio 22.9 (12.0-20.0); CO2, Blood 22 mmol/L (21-32); Calcium, Blood 8.2 mg/dL (8.5-10.1); Chloride, Blood 114 mmol/L (98-108); Creatinine, Blood 1.66 mg/dL (0.40-1.00); Digoxin (Lanoxin) 0.91 ug/mL (0.80-2.00); Glomerular Filtration Rate 30 (60-); Glucose, Blood 117 mg/dL (70-99); Potassium, Blood 3.6 mmol/L (3.5-5.5); Sodium, Blood 143 mmol/L (136-145)
--- NOTE | 2023-01-11 04:30 | NUR ---
UPDATE CBC RESULTS THIS AM SHOW Hgb DROP FROM 11.[address] CONROY NOTIFIED OF THIS RESULT DUE TO CONTINUTION OF BLOODY STOOL W/CLOTS WELL PT ON HEPARIN gtt DUE TO RECENT DVT. Q6HR H&H ORDERED WELL GI CONSULT TO BE CALLED IN. PER MD ORDER, HEPARIN gtt TO CONTINUE INFUSING. NO OTHER ORDERS AT THIS TIME.
--- NOTE | 2023-01-11 06:34 | NUR ---
SHIFT SUMMARY PT IS A/Ox3-4 AND COOPERATIVE WITH CARE PROVIDED BY MEMBERS OF STAFF. ANSWERS QUESTIONS APPROPRIATELY AND ABLE TO MAKE HER NEEDS KNOWN. PT EXPERIENCED 2 BLOODY STOOLS LAST NIGHT. THICK 7-8cm CLOTS NOTED TO BE MIXED IN WITH STOOL. PT IS ON HEP gtt DUE TO RECENT DVT DIAGNOSIS. PT'S Hgb DROPPED FROM 11.9-10.6, BUT NO REPORTS OF DIZZINESS OR PALPITATIONS AT THIS TIME. HEPARIN gtt ORDERED TO BE CONTINUED PER DR. MURRAY'S ORDERS. Q6 H&H CHECKS TO BE PERFORMED. GI CONSULTATION TO BE CALLED IN THIS AM. CARDIAC MCCORMICK, REMAINS IN AFIB WITH A RATE RANGING 90-110'S. HR WOULD JUMP UP TO 130-140'S WHEN PT ABULATES, BUT DOES NOT SUSTAIN THIS HR. NO C/O CP OR PRESSURE T/O THE NIGHT. SBP STABLE AT THIS TIME. RESPIRATORY MCCORMICK, MAINTAINS SPO2 >90% ON RA WITH NO C/O SOB OR DYSPNEA. ABLE TO STAND PIVOT TO BSC WITH MINIMAL ASSISTANCE FROM STAFF. NO NEW ORDERS AT THIS TIME, WILL REPORT TO ONCOMING RN. KATIA ALICEA OF THIS NOTE.
[2023-01-11 09:30] LABS: Hematocrit 36.7 % (33.0-51.0); Hemoglobin 11.7 g/dL (11.5-16.0)
[2023-01-11 10:42] LABS: Stool Occult Blood Guaiac 1 Pos (Neg)
[2023-01-11 11:31] LABS: Hematocrit 35.9 % (33.0-51.0); Hemoglobin 11.2 g/dL (11.5-16.0)
--- NOTE | 2023-01-11 13:25 | NUR ---
Patient is sitting up in bed and alert. She talks at length about her life, her philosophies about meaning, purpose and health. She also shares about her family and her gratitude for her grandson, Eben and his family. She explains about the value of prayer in her life and welcomes prayer form this customer engineer. I gladly provide prayer and therapeutic listening and patient voices her appreciation for it. I notice increased peacefulness about her. I will continue to remain available.
[2023-01-11 15:28] LABS: Hematocrit 35.7 % (33.0-51.0); Hemoglobin 11.5 g/dL (11.5-16.0)
--- NOTE | 2023-01-11 17:51 | NUR ---
SHIFT SUMMARY PT A/OX3-4 AND COOPERATIVE OF CARE. PT ABLE TO EXPRES NEED. PT HR LABILE RANGING 90-120'S, WITH BRIEF EPISODES OF 150 THAT RETURN TO THE 90-120'S. PT BP'S ELEVATED, TREATING PER EMAR. OTHER VSS THROUGHOUT SHIFT WITH 02 SATS IN THE 90'S ON RA. NO REPORT OF CHEST PAIN/PRESSURE THROUGHOUT SHIFT. NO REPORT OF SOB/DYSPNEA THROUGHOUTSHIFT. GI CONSULT CALLED IN THIS AM, SEE CONSULT COMMENT. PT HAD TWO SMALL/MED GEL-LIKE STOOL THAT HAD BLOOD, DR AWARE. TRENDING H&H. HEP GTT RUNNING PER EMAR. PT ABLE TO TRANSFER TO AND FROM [facility] WITH MINIMAL ASSISTANCE.
[2023-01-11 22:06] LABS: Hemoglobin 10.9 g/dL (11.5-16.0)
[2023-01-12] VITALS (7 sets, daily range): BP systolic 102–165; BP diastolic 57–98
[2023-01-12 04:00] LABS: Hematocrit 33.4 % (33.0-51.0); Hemoglobin 10.4 g/dL (11.5-16.0)
[2023-01-12 04:24] LABS: Bun/Creatinine Ratio 20.6 (12.0-20.0); Calcium, Blood 7.9 mg/dL (8.5-10.1); Creatinine, Blood 1.55 mg/dL (0.40-1.00); Potassium, Blood 4.1 mmol/L (3.5-5.5)
--- NOTE | 2023-01-12 05:20 | NUR ---
SHIFT SUMMARY: Uneventful night. Pt slept for most of the night, no complaints of pain or discomfort. Up w/ SBA to commode, voiding, had one bloody bowel movement- dark red medium sized. Still on heparin- rate unchanged. On room air, right side of lung diminished, left side clear breath sounds.
[2023-01-12 10:18] LABS: Hematocrit 34.9 % (33.0-51.0); Hemoglobin 11.3 g/dL (11.5-16.0)
--- NOTE | 2023-01-12 17:54 | NUR ---
SHIFT SUMMARY PT A/OX3-4, FORGETFUL AT TIMES. PT ABLE TO EXPRESS NEEDS. PT 'S SBP ELEVATED FOR MOST OF SHIFT. PT HR REMAINED A-FIB WITH A RATE OF 90-110'S WHILE SLEEPING, AND 110-150'S WHEN SITTING AT EDGE OF BED. TREATING HR PER ORDERS. OTHER VSS THROUGHOUT SHIFT WITH 02 SATS IN WILL 90'S ON RAN. NO REPORT OF CHEST PAIN/PRESSURE THROUGHOUT SHIFT. NO REPORT OF SOB. PT DID REPORT SOME PAIN OF HER ABD, NO NAUSEA, SUBSIDED WITH TYLENOL. HEP GTT RUNNNING PER EMAR. NO BM THIS SHIFT, LOW URINE OUTPUT, SEE I/O'S.
[2023-01-12 18:09] LABS: Hematocrit 37.6 % (33.0-51.0); Hemoglobin 11.7 g/dL (11.5-16.0)
[2023-01-13] VITALS: BP 155/99
[2023-01-13 02:37] LABS: Hematocrit 35.3 % (33.0-51.0); Hemoglobin 11.3 g/dL (11.5-16.0)
[2023-01-13 02:46] LABS: Mean Platelet Volume 9.3 fL (9.1-12.4); Platelet Count 219 K/mm3 (150-400)
[2023-01-13 04:02] VITALS: BP 133/87
--- NOTE | 2023-01-13 05:51 | NUR ---
SHIFT SUMMARY ASSUMED CARE OF PT AT 1900. PT IS A/OX4. HEART SOUNDS IRREGULAR. PT HR RANGED FROM 90-110 WHILE ASLEEP AND 120-130 WHILE AWAKE AND SITTING IN ON COMMODE. LUNG SOUNDS HAVE CRACKLES IN THE L BASES. PT C/O ABD IN THE UPPER QUADRANTS. PT STILL HAD SOME STORM RED BLOOD ON WIPE BUT NO BM. PT MEDICATED PER EMAR. NO OTHER COMPLAINTS AND SLEPT T/O THE NOC.
[2023-01-13 07:47] VITALS: BP 160/99
[2023-01-13 11:53] VITALS: BP 99/83
[2023-01-13 16:06] VITALS: BP 145/82
--- NOTE | 2023-01-13 18:03 | NUR ---
SHIFT SUMMARY PT A/OX3-4 AND COOPERATIVE OF CARE. PT HR REMAINED A-FIB WITH A VARYING RATE THROUGHOUT SHIFT RANGING 90-110'S AT REST AND 110-140'S WHEN SITTING AT EDGE OF BED OR MOVING. IV LOPRESSOR GIVEN ONCE DURING SHIFT PER ORDERS, HR IN THE 100-110'S AFTER ADMINISTRATION WITH BRIEF EPISODES OF 130. PT BP LABILE BUT STABLE. OTHER VSS THROUGHOUT SHIFT WITH O2 SATS IN WILL 90'S ON RA. PT HEPARIN STOPPED AND PT STARTED ON PO ELIQUIS PER ORDERS. NO REPORT OF CHEST PAIN/PRESSURE THROUGHOUT SHIFT. NO REPORT OF SOB/DYSPNEA THROUGHOUT SHIFT. PT UP TO CHAIR A COUPLE OF TIMES, PT ABLE TO TRANSFER WITH MINIMAL ASSISTANCE, TOLERATED WELL.
[2023-01-13 19:46] VITALS: BP 149/88
[2023-01-14] VITALS (7 sets, daily range): BP systolic 102–167; BP diastolic 67–100
--- NOTE | 2023-01-14 05:53 | NUR ---
SHIFT SUMMARY ASSUMED CARE OF PT AT 1900. PT IS A/OX4 WITH TIMES OF CONFUSION. HEART SOUNDS IRREGULAR, PT HAD LOTS OF OVC DURING THE NOC AND A RUN OF BIGEM. THIS WAS DURING PT VOMITING EPISODES. ONCE PT SLEPT, SHE STAYED IN AFIB WITH NO EVENTS. LUNG SOUNDS CLEAR. PT HAD NO BLOOD WHEN WIPING AFTER USING THE COMMODE THIS NOC. PT WAS SBA TO BS. NO ACUTE EVNTS DURING THE NOC, PT SLEPT MOST OF THE NOC.
[2023-01-14 08:27] LABS: Hematocrit 36.5 % (33.0-51.0); Hemoglobin 11.3 g/dL (11.5-16.0)
[2023-01-14 08:42] LABS: Bun/Creatinine Ratio 17.4 (12.0-20.0); Calcium, Blood 8.3 mg/dL (8.5-10.1); Creatinine, Blood 1.38 mg/dL (0.40-1.00); Magnesium, Blood 2.2 mg/dL (1.6-2.4); Potassium, Blood 4.1 mmol/L (3.5-5.5)
[2023-01-15 02:27] VITALS: BP 151/98
--- NOTE | 2023-01-15 04:51 | NUR ---
SHIFT SUMMARY 87 YR F TRANSFERED FROM PCU ON 01/14/23 W/ LLE PARTIAL OCCLUSION DVT. DNR. NO ACUTE CHANGES THIS SHIFT. PT CONTINUOUSLY STATES THAT SHE IS COLD DESPITE BEING GIVEN MULTIPLE WARMED BLANKETS. TEMP IN ROOM WARMED UP AND PT SLEPT FOR SEVERAL HOURS THIS SHIFT. SHE C/O ABDOMINAL PAIN AND WAS MEDICATED PER EMAR. SHE USES THE CALL LIGHT APPROPRIATELY FOR ASSISTANCE BUT ALSO CALLS OUT FOR THE NURSE AND MAT MAN BY NAME. SHE IS A&O W/ INTERMITTENT CONFUSION.
[2023-01-15 07:05] VITALS: BP 124/62
[2023-01-15] MEDS ORDERED: ELIQUIS2.5 MG PO (12:10)
[2023-01-15] MEDS ORDERED: OMEP20ER PO (12:11)
[2023-01-15] MEDS ORDERED: ONDA4 PO (12:12)
[2023-01-15] MEDS ORDERED: SENN187 PO (12:12)
[2023-01-15] MEDS ORDERED: DIGOX125 MC1 PO (12:12)
[2023-01-15 14:38] VITALS: BP 114/56
--- NOTE | 2023-01-15 17:39 | NUR ---
SHIFT SUMMARY PATIENT RESTING MOST OF THE DAY. PATIENT AROUSES EASILY AND COEUR D'ALENE. PATIENT UP OOB MULTIPLE TIMES TODAY. DISCHARGE ORDERS WRITTEN FOR PATIENT BUT UNABLE TO REACH FAMILY TO PICK PATIENT UP. PATIENT REMAINS ON TELE WITH AFIB. PATIENT FORGETFUL BUT PLEASANT.
[2023-01-15 19:51] VITALS: BP 150/79
[2023-01-16 01:41] VITALS: BP 136/89
[2023-01-16 02:59] VITALS: BP 142/86
[2023-01-16 05:09] LABS: Hematocrit 33.5 % (33.0-51.0); Hemoglobin 10.3 g/dL (11.5-16.0)
--- NOTE | 2023-01-16 06:00 | NUR ---
[facility] SENT RHYTHM STRIPS TO RN D/T RHYTHM APPEARING "ENTIRELY DIFFERENT" WHILE MAINTAINING AFIB W/RATE UNCHANGED. PLANS TO REVIEW EKG AND STRIPS FROM [facility] BUT NO NEW ORDERS RECIEVED AT THIS TIME.
--- NOTE | 2023-01-16 06:26 | NUR ---
REVIEWED STRIPS/EKG AND SAID PT HAS AFIB W/BBB THUS EXPLAINING VARIATION IN RHYTHM APPEARANCE BUT HE DIDN'T THINK ST ELEVATION WAS EVIDENT. SINCE PT HAS BEEN ASYMPTOMATIC OF CARDIAC DISTRESS, NO NEW ORDERS WERE PROVIDED AT THIS TIME.
[2023-01-16 07:01] VITALS: BP 138/98
[2023-01-16 08:36] LABS: Digoxin (Lanoxin) 0.79 ug/mL (0.80-2.00)
[2023-01-16 09:22] LABS: Stool Occult Blood Guaiac 1 Pos (Neg)
--- NOTE | 2023-01-16 13:40 | NUR ---
NURSE NOTE DR AWARE OF PATIENTS ELEVATED HR. IV METOPROLOL GIVEN FOR HR SUSTAINED ABOVE 120.
[2023-01-16 15:31] VITALS: BP 140/96
--- NOTE | 2023-01-16 16:39 | NUR ---
SHIFT SUMMARY PATIENT IS ALERT AND ORIENTED. PATIENT HAS HAD NO ACUTE EVENTS THIS SHIFT. PATIENTS HEART RATE HAS BEEN ELEVATED MOST OF SHIFT. DR AWARE, SEE PRIOR NOTE. PUSHED IV METOPROLOL TWICE WITH MINOR EFFECT. DR ORDERED ADDITIONAL CARDIZEM IV PRN. PATIENT HAS NOT COMPLAINED OF PAIN, NAUSEA, SOB OR VOMITTING THIS SHIFT. BED IN LOCKED AND LOWEST POSITION. CALL LIGHT IN PLACE. WILL MONITOR UNTIL SHIFT CHANGE.
[2023-01-16 19:24] VITALS: BP 156/76
--- NOTE | 2023-01-17 06:00 | NUR ---
SUMMARY: PT A/OX3, IS MILDLY FORGETFUL AT TIMES BUT IS PLEASANT AND COOPERATIVE W/CARE. SHE'S UP W/SBA TO BSC AND CONT'S TO REPORT SLIGHT UPPER ABDO DISCOMFORT BUT NO PRN PAIN MEDS REQUIRED. 5 VERY SMALL FORMED BM'S OBSERVED THIS SHIFT BUT NO BLOOD NOTED TO STOOL TONIGHT. SHE REMAINS AFIB ON TELEMETRY AT 60'S-100'S BPM, AVERAGING 90'S BPM W/A HIGH OF 112 BPM. PRN RATE CONTROL MEDS WERE NOT REQUIRED. SHE SLEPT MAJORITY OF NOCTE AND DENIED CP, DYSPNEA AND ALL OTHER S/S CARDIAC DISTRESS. NO ACUTE CHANGES, VSS/AFEBRILE. POSSIBLE D/C TODAY. WCTM AND REPORT TO DAY RN.
[2023-01-17 06:08] LABS: Hematocrit 38.1 % (33.0-51.0); Hemoglobin 11.8 g/dL (11.5-16.0)
[2023-01-17 06:37] VITALS: BP 125/95
[2023-01-17 07:09] VITALS: BP 162/109
[2023-01-17] MEDS ORDERED: METO50 PO (12:40)
[2023-01-17 15:13] VITALS: BP 114/71
--- NOTE | 2023-01-17 18:02 | NUR ---
DISCHARGE SUMMARY PATIENT IS ALERT AND ORIENTED. PATIENT HAS HAD NO ACUTE EVENTS THIS SHIFT. PATIENTS BP WAS ELEVATED. DR WAS AWARE AND ORDERED BP MEDS PRN. GIVEN ONCE. PATIENTS GRANDSON IS TRANSPORTING PATIENT HOME.
== END 2023-01-17 18:15 | disposition home health service (06) | DRG 299 ==
LOC: ER 03:13 → PCU 03:14 → MEDS 01-14 14:40 → ENPENDDIS 01-17 13:12 → MEDS 01-17 18:15
PROVIDERS: Family Medicine; Internal Medicine; Student in an Organized Health Care Education/Training Program; ADMIT Internal Medicine
DX: I82.462 Acute embolism and thrombosis of left calf muscular vein (principal); E43 Unspecified severe protein-calorie malnutrition; N18.4 Chronic kidney disease, stage 4 (severe); I13.0 Hypertensive heart and chronic kidney disease with heart failure and stage 1 through stage 4 chronic kidney disease, or unspecified chronic kidney disease; I50.42 Chronic combined systolic (congestive) and diastolic (congestive) heart failure; E87.20 Acidosis, unspecified; Q27.30 Arteriovenous malformation, site unspecified; I48.20 Chronic atrial fibrillation, unspecified; I48.92 Unspecified atrial flutter; K92.2 Gastrointestinal hemorrhage, unspecified; R64 Cachexia; Z66 Do not resuscitate; K59.00 Constipation, unspecified; R20.0 Anesthesia of skin; D63.1 Anemia in chronic kidney disease; E78.5 Hyperlipidemia, unspecified; D50.9 Iron deficiency anemia, unspecified; E87.6 Hypokalemia; G89.29 Other chronic pain; M79.652 Pain in left thigh; J44.9 Chronic obstructive pulmonary disease, unspecified; I73.9 Peripheral vascular disease, unspecified; K21.9 Gastro-esophageal reflux disease without esophagitis; I27.20 Pulmonary hypertension, unspecified; I34.0 Nonrheumatic mitral (valve) insufficiency; I07.1 Rheumatic tricuspid insufficiency; F41.9 Anxiety disorder, unspecified; R79.89 Other specified abnormal findings of blood chemistry; K22.70 Barrett's esophagus without dysplasia; G31.84 Mild cognitive impairment of uncertain or unknown etiology; Z90.89 Acquired absence of other organs; Z90.49 Acquired absence of other specified parts of digestive tract; Z90.710 Acquired absence of both cervix and uterus; Z98.890 Other specified postprocedural states; Z87.891 Personal history of nicotine dependence; Z85.42 Personal history of malignant neoplasm of other parts of uterus; Z68.20 Body mass index [BMI] 20.0-20.9, adult; Z88.1 Allergy status to other antibiotic agents; Z88.5 Allergy status to narcotic agent; Z79.2 Long term (current) use of antibiotics; Z79.899 Other long term (current) drug therapy
CPT/HCPCS: 36415; 71045; 78580; 80048; 80053; 80162; 82270; 82803; 83735; 83880; 84484; 85014; 85018; 85025; 85049; 85379; 85520; 85610; 85730; 93005; 93010; 93306; 93970; 94760; 94762; 96361; 96365; 96367; 96375; 96376; 97110; 97116; 97161; 97530; 99285-25; A9270; A9540; G0378; J1160; J1644; J1940; J2405; J7030

== ENCOUNTER → 2023-02-07 | Outpatient (CLI) | payer MEDICARE, OTHER ==
[~2023-02-07] MED LIST changes: +DIGOX125 MC1 PO; +METO50 PO; +ONDA4 PO; +SENN187 PO
[2023-02-07 19:53] LABS: Albumin, Blood 3.4 g/dL (3.4-5.0); Anion Gap 6 mmol/L (6-16); Blood Urea Nitrogen 34 mg/dL (8-24); Bun/Creatinine Ratio 16.7 (12.0-20.0); CO2, Blood 32 mmol/L (21-32); Calcium, Blood 8.9 mg/dL (8.5-10.1); Chloride, Blood 101 mmol/L (98-108); Creatinine, Blood 2.04 mg/dL (0.40-1.00); Glomerular Filtration Rate 23 (60-); Glucose, Blood 89 mg/dL (70-99); Phosphorus, Blood 3.3 mg/dL (2.5-4.9); Potassium, Blood 4.1 mmol/L (3.5-5.5); Sodium, Blood 139 mmol/L (136-145)
== END | disposition home or self-care (01) ==
LOC: LAB 18:11 → LAB SHORT 18:11
PROVIDERS: Internal Medicine Nephrology
DX: N18.5 Chronic kidney disease, stage 5 (principal); D63.1 Anemia in chronic kidney disease
CPT/HCPCS: 80069

== ENCOUNTER 2023-03-21 22:30 | Inpatient (IN) | payer MEDICARE, OTHER ==
[~2023-03-21] VITALS: Ht 147.3 cm; Wt 45.4 kg
[2023-03-21] MEDS ORDERED: BUMETANIDE2 M6 PO (23:01)
[2023-03-21 23:44] LABS: BASOPHILS ABSOLUTE AUTO 0.03 K/mm3 (0.00-0.23); BASOPHILS PERCENT AUTO 0 % (0-2); EOSINOPHILS ABSOLUTE AUTO 0.09 K/mm3 (0.00-0.68); EOSINOPHILS PERCENT AUTO 1 % (0-6); Hematocrit 33.8 % (33.0-51.0); Hemoglobin 10.9 g/dL (11.5-16.0); IMMATURE GRAN ABSOLUTE AUTO 0.05 K/mm3 (0.00-0.10); IMMATURE GRAN PERCENT AUTO 0 % (0-1); LYMPHOCYTES ABSOLUTE AUTO 0.84 K/mm3 (0.84-5.20); LYMPHOCYTES PERCENT AUTO 8 % (21-46); MONOCYTES PERCENT AUTO 10 % (4-13); Mean Corpuscular HGB 27.6 pg (26.0-34.0); Mean Corpuscular HGB Conc 32.2 g/dL (31.5-36.5); Mean Corpuscular Volume 86 fL (80-100); Mean Platelet Volume 9.7 fL (9.1-12.4); NEUTROPHILS ABSOLUTE AUTO 9.05 K/mm3 (1.96-9.15); NEUTROPHILS PERCENT AUTO 81 % (41-73); Platelet Count 357 K/mm3 (150-400); RDW Coefficient Variation 16.5 % (11.7-14.2); RDW Standard Deviation 51.8 fL (35.1-46.3); Red Blood Cell Count 3.95 M/mm3 (3.80-5.20); White Blood Cell Count 11.16 K/mm3 (4.00-11.30)
[2023-03-22 00:06] LABS: Albumin, Blood 3.3 g/dL (3.4-5.0); Albumin/Globulin Ratio 0.7 (0.8-1.8); Bun/Creatinine Ratio 12.7 (12.0-20.0); Calcium, Blood 8.7 mg/dL (8.5-10.1); Creatinine, Blood 1.81 mg/dL (0.40-1.00); Globulin, Blood 4.5 g/dL (2.2-4.0); Potassium, Blood 4.2 mmol/L (3.5-5.5); Total Protein, Blood 7.8 g/dL (6.4-8.2)
[2023-03-22 01:14] LABS: Influenza A, PCR NEGATIVE (NEGATIVE); Influenza B, PCR NEGATIVE (NEGATIVE); Resp Syncytial Virus, PCR NEGATIVE (NEGATIVE); SARS-Cov-2 (COVID-19) PCR, MMC NEGATIVE (NEGATIVE)
[2023-03-22 02:58] LABS: Source, Urine Straight Cath
[2023-03-22 03:02] LABS: Bilirubin, Urine Neg (Neg); Blood, Urine 2+ (Neg); Glucose Qualitative, Urine Neg (Neg); Ketones, Urine Neg (Neg); Leukocyte Esterase, Urine 2+ (Neg); Nitrite, Urine Pos (Neg); Protein, Urine 3+ (Neg); Specific Gravity, Urine 1.015 (1.003-1.022); Urobilinogen, Urine NORM (Normal)
[2023-03-22 03:27] LABS: Appearance, Urine Hazy (Clear); Color, Urine Yellow (P-Yellow)
[2023-03-22 03:28] LABS: Bacteria Many /hpf; Red Blood Cells, Urine 0-2 /hpf (0-2); Squamous Epithelial Cells Few /hpf (Few)
[2023-03-22 05:34] VITALS: BP 134/86
--- NOTE | 2023-03-22 06:18 | NUR ---
ED ADMIT AT APPROX 0515, SLIDE TX FROM GURNEY TO BED. GENERALIZED WEAKNESS. A/O 2-3, PT KNOWS THAT SHE IS IN THE HOSPITAL AND KNOWS THE YEAR HOWEVER SHE IS POOR HISTORIAN. FREQUENTLY CALLING OUT AND ATTEMPTING TO TAKE OFF TELE, EASILY REORIENTED. TELE AFIB 115-140S, DENIES CHEST PAIN/PRESSURE. IV LOPRESSOR PUSH GIVEN X1. LACERATION TO L. FA, DRESSING C/D/I. BED IN LOWEST POSITON WITH CALL LIGHT IN REACH. WILL CONTINUE TO MONITOR AND REPORT TO ONCOMING RN.
--- NOTE | 2023-03-22 07:52 | NUR ---
WHEEZING/TACHY WHILE ROUNDING, PATIENT WAS SEEN LYING IN BED AUDIBLY WHEEZING, RESTLESS, AND HR IN 140'S. LUNG SOUNDS CLEAR ON AUSCULATION AND PATIENT DOES NOT VERBALIZE ANY SHORTNESS OF BREATH. CALL MADE TO DR. BAUMAN TO UPDATE AND ORDER RECEIVED FOR LOPRESSOR 2.5MG IV NOW AND TO ADMINISTER MORNING PO LOPRESSOR NOW. IV LOPRESSOR OBTAINED AND ADMINISTERED WITH HR NOW IN 130'S. RT CALLED TO BEDSIDE FOR WHEEZING AND DUONEB ADMINISTERED BY RT. SPO2 CURRENTLY 94% AND AUDIBLE WHEEZING STILL PRESENT.
--- NOTE | 2023-03-22 08:03 | NUR ---
UPDATE ON WHEEZING/TACHY PATIENT HR DOWN TO 110'S-130'S. PATIENT STILL HAS POOR WORK OF BREATHING AND AUDIBLE WHEEZING FOLLOWING DUONED TX FROM RT. CALL MADE TO DR. BAUMAN TO UPDATE ON THE ABOVE AND NOTIFY THAT PO LOPRESSOR CANNOT SAFELY BE ADMINISTERED D/T PATIENT RESPIRATORY STATUS. ORDER RECEIVED FROM DR. BAUMAN FOR DUONEB TC STARTING NOW AND Q6 PRN WHEEZING.
--- NOTE | 2023-03-22 09:41 | NUR ---
DR KATIE BAUMAN AT BEDSIDE FOR ROUNDING AND NOTIFIED OF PATIENT NOT VOIDING THIS SHIFT. BLADDER SCAN ORDERED AND VOLUME OF 206 IN BLADDER WITH SMALL AMOUNT OF URINE IN BRIEF. DR. BAUMAN ALSO NOTIFIED OF LACERATION TO LT ALBOW/UPPER ARM SHOWING ADIPOSE TISSUE AND NOT REPAIRED. GENERAL SURGERY CONSULTED.
[2023-03-22 10:07] LABS: BASOPHILS ABSOLUTE AUTO 0.01 K/mm3 (0.00-0.23); BASOPHILS PERCENT AUTO 0 % (0-2); EOSINOPHILS PERCENT AUTO 0 % (0-6); Hemoglobin 10.5 g/dL (11.5-16.0); IMMATURE GRAN ABSOLUTE AUTO 0.06 K/mm3 (0.00-0.10); IMMATURE GRAN PERCENT AUTO 1 % (0-1); LYMPHOCYTES ABSOLUTE AUTO 0.48 K/mm3 (0.84-5.20); LYMPHOCYTES PERCENT AUTO 4 % (21-46); MONOCYTES ABSOLUTE AUTO 0.99 K/mm3 (0.16-1.47); MONOCYTES PERCENT AUTO 8 % (4-13); Mean Corpuscular HGB 27.3 pg (26.0-34.0); Mean Corpuscular HGB Conc 30.9 g/dL (31.5-36.5); Mean Corpuscular Volume 88 fL (80-100); Mean Platelet Volume 9.4 fL (9.1-12.4); NEUTROPHILS ABSOLUTE AUTO 11.26 K/mm3 (1.96-9.15); NEUTROPHILS PERCENT AUTO 88 % (41-73); NRBC ABSOLUTE 0.04 K/mm3 (0.00-0.02); NRBC Auto 0.3 /100 WBC (0.0-0.2); Platelet Count 282 K/mm3 (150-400); RDW Coefficient Variation 16.6 % (11.7-14.2); RDW Standard Deviation 53.7 fL (35.1-46.3); Red Blood Cell Count 3.85 M/mm3 (3.80-5.20)
[2023-03-22 10:26] LABS: BASOPHILS PERCENT MAN 0 % (0-2); EOSINOPHILS PERCENT MAN 0 % (0-6); LYMPHOCYTES ABSOLUTE MAN 0.38 K/mm3 (0.84-5.20); LYMPHOCYTES PERCENT MAN 3 % (21-46); MONOCYTES ABSOLUTE MAN 0.25 K/mm3 (0.16-1.47); MONOCYTES PERCENT MAN 2 % (4-13); NEUTROPHILS ABSOLUTE MAN 12.16 K/mm3 (1.96-9.15); SEG NEUTROPHILS PERCENT MAN 95 % (41-73); TOTAL CELLS COUNTED 100
[2023-03-22 10:51] LABS: Albumin, Blood 3.1 g/dL (3.4-5.0); Albumin/Globulin Ratio 0.7 (0.8-1.8); Bilirubin, Total 1.3 mg/dL (0.1-1.0); Calcium, Blood 8.8 mg/dL (8.5-10.1); Creatinine, Blood 1.92 mg/dL (0.40-1.00); Globulin, Blood 4.3 g/dL (2.2-4.0); Magnesium, Blood 2.1 mg/dL (1.6-2.4); Potassium, Blood 3.1 mmol/L (3.5-5.5); Total Protein, Blood 7.4 g/dL (6.4-8.2)
[2023-03-22 12:03] VITALS: BP 126/66
--- NOTE | 2023-03-22 15:43 | NUR ---
CODE STATUS AND ANURIA PATIENT'S GRANDSON VISITED PATIENT TODAY AND DISCUSSED PATIENT'S WISHES TO BE DNR. AFTER SPEAKING WITH PATIENT AND CONFIRMING THESE WISHES, CALL MADE TO DR. BAUMAN TO NOTIFY. DNR BRACELET PLACED ON PATIENTS RT WRIST AND DOOR. BLADDER SCAN ALSO COMPLETED D/T PATIENT NOT URINATING SINCE THIS MORNING AND DENYING URGE TO URINATE. BLADDER SCAN SHOWED 266ML IN BLADDER. DR BAUMAN UPDATED WITH THIS INFORMATION AND ORDER RECEIVED FOR NS @ 100ML/HR.
--- NOTE | 2023-03-22 16:26 | NUR ---
HR 166 WHILE WORKING WITH PT PATIENT'S HR WENT UP TO 166 BEFORE SITTING ON EDGE OF BED. CALL MADE TO DR. BAUMAN TO UPDATE AND ORDER RECEIVED FOR CARDIZEM GTT. CARDIZEM STARTED AT 5MG/HR.
--- NOTE | 2023-03-22 17:14 | NUR ---
SHIFT SUMMARY SEE PREVIOUS NOTES ON ACUTE EVENTS DURING SHIFT. CARDIZEM GTT TITRATED UP TO 20MG/HR WITH HR REMAINING 115-135 AT REST. PATIENT STILL HAS NOT HAD ANY URINE OUT SINCE LAST BLADDER SCAN. NS STILL INF @ 100ML/HR. PATIENT REMAINS ORIENTED X 3. BELIEVES SHE IS IN THE HOSPITAL FOR A STROKE. PLEASANT AND COOPERATIVE WITH CARES.
[2023-03-22 20:26] VITALS: BP 136/65
[2023-03-23] VITALS (38 sets, daily range): BP systolic 72–150; BP diastolic 52–86
[2023-03-23 04:36] LABS: Bun/Creatinine Ratio 14.5 (12.0-20.0); Calcium, Blood 9.3 mg/dL (8.5-10.1); Creatinine, Blood 2.14 mg/dL (0.40-1.00); Potassium, Blood 3.6 mmol/L (3.5-5.5)
--- NOTE | 2023-03-23 06:19 | NUR ---
SHIFT SUMMARY AWAKES TO VERBAL/PAINFUL STIMULI, ORIENTED TO SELF, FAMILY, AND PLACE. TELE AFIB 100-140S, DENIES CHEST PAIN/PRESSURE. CARDIZEM GTT CURRENTLY INFUSING AT 20. BP STABLE. AUDIBLE WHEEZES NOTED, PT PLACED ON CPAP AND OT DOSE OF BUMEX GIVEN. BLADDER SCAN COMPLETED, <200. INCONT, ATTENDS IN PLACE. DRESSING TO L. ELBOW/FA C/D/I. BED IN LOWEST POSITION, ALARM ON, CALL LIGHT IN REACH. WILL CONTINUE TO MONITOR AND REPORT TO ONCOMING RN.
--- NOTE | 2023-03-23 09:01 | NUR ---
UPDATE MD NOTIFIED PT HAS ZERO URINE OUTPUT. BLADDER SCAN SHOWS 197. ORDERS TO RUN IV FLUIDS AT 100ML/HR. WILL CONT TO MONITOR.
--- NOTE | 2023-03-23 10:10 | NUR ---
UPDATE PLAN FOR MD TO ASSESS PT. D/T HOLDING ELIQUIS THIS AM PT IN NEED OF BLOOD THINNER D/T AFIB. PLAN TO START HEPARIN GTT IF HEAD CT NEGATIVE FOR HEMMORHAGIC STROKE. WILL CONT TO MONITOR.
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
--- NOTE | 2023-03-23 10:42 | NUR ---
UPDATE SOFT TOP INSTALLER AT BEDSIDE
--- NOTE | 2023-03-23 10:46 | NUR ---
UPDATE AT BEDSIDE WITH MANUFACTURING ACCOUNTANT. PT RESTING.
--- NOTE | 2023-03-23 11:17 | NUR ---
UPDATE MD NOTIFIED OF PT'S LOW BP AND INCREASE IN HR INTO 140'S. MD AWARE THIS RN ONLY ABLE TO GIVE 20 MG OF LASIX D/T BP. PLAN TO GIVE 2.5 IV METOPROLOL. CURRENT BP 100/78, MAP OF 87.
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
--- NOTE | 2023-03-23 13:01 | NUR ---
UPDATE MD AWARE OF CT RESULTS. NO ORDERS FOR HEPARIN AT THIS TIME D/T LARGE SIZE OF INFARCT AND INCREASED RISK OF HEMMORHAGE. MD NOTIFYING FAMILY AT THIS TIME.
--- NOTE | 2023-03-23 14:42 | NUR ---
UPDATE ORDERS FOR ONE TIME SUPPOSITORY OF ASA. FAMILY NOTIFIED BY MD OF HEAD CT. PLAN FOR PALLIATIVE CARE TO MEET WITH PT AND FAMILY THIS AFTERNOON.
--- NOTE | 2023-03-23 15:22 | NUR ---
Spoke with Dr Ly and discussed case. 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 Dr Ly reviewed plan of care and option for PEG tube with jacque. Jacque does not believe Pt would want remote computer terminal operator artificial nutrition. Brief discussion regarding considering hospice was made pending Pt's clinical course. Jacque may benefit from further discussion regarding hospice understanding. Spoke with Pt's Primary RN Maryam and discussed case. Jacque visited briefly earlier today but plans to return after he gets off work. Pt resting in bed with her eyes closed. Pt responds to basic yes or no questions by mumbling yes or not and shaking her head. Pt trish pain at this time. Pt appears comfortable with no S/S of distress at this time. Palliative Care will F/U with jacque later this afternoon when he returns to visit.
--- NOTE | 2023-03-23 15:45 | NUR ---
UPDATE RT CALLED INTO ROOM D/T PT'S INCREASE IN WOB. PT UNABLE TO HANDLE SECRETIONS. D/T ASPIRATION RISK, PT UNABLE TO TOLERATE CPAP. MD NOTIFIED. MD TO PLACE ORDERS PER EMAR TO ASSIST IN CONTROL OF SECRETIONS. MD AWARE OF LOW BP. MAP REMAINS STABLE, ABOVE 65. OXYGEN SATURATION MAINTAINED ABOVE 92% ON 4 L VIA NC.
--- NOTE | 2023-03-23 16:56 | NUR ---
UPDATE MD NOTIFIED OF PT'S LOW BP. ORDERS FOR 1L OF NS AT 100ML/HR
--- NOTE | 2023-03-23 17:09 | NUR ---
UPDATE PER , TRIALYSIS CATH IN NEED OF REMOVAL D/T INCREASE OF INFECTION RISK. ALL MEDICATIONS SWITCHED TO PO PER MD. ORDERS TO REMOVE CATH. CATHETER REMOVED WITH IDENTIFICATION AND RECORDS COMMANDER ASSISTANCE. SITE WNL. NO BLEEDING OR HEMATOMA. PRESSURE HELD FOR 10 MINUTES. HOB FLAT. FAMILY AT BEDSIDE. BOAT CAPTAIN AT BEDSIDE.
--- NOTE | 2023-03-23 18:44 | NUR ---
Received call from Primary RN Maryam reporting grandson has arrived. Pt resting in bed with her eyes closed. Pt responds briefly with direct yes or no questions. Pt's grandson Eben and his children at bedside. Maryam offers to take children to do a puzzle during conversation. Reviewed plan of care and potential need to consider hospice if no improvement as Eben reports Pt would not want any artificial nutrition by tube. Educated on hospice philosophy with V/U made by Eben. Answered questions and offeredd therapeutic listening. Eebn reports speaking with [employer] and states Pt does not qualify for Medicaid due to owning her home and amount of money she has in her account. He reports if Pt goes on hospice he will use the money in Pt's account to assist with paying for caregivers while he is at work. Continued therapeutic listening. Eben expresses appreciation and reports no other concerns at this time. Spoke with Primary RN Maryam and discussed case. Palliative Care will remain available
--- NOTE | 2023-03-23 19:21 | NUR ---
SHIFT SUMMARY/UPDATE MD NOTIFIED OF PT'S LOW BP. PLAN FOR 25 GM OF ALBUMIN AND 40 OF LASIX POST TRANSFUSION. SPOKE WITH DILIP RO REGARDING TRANSFERRING PT TO ICU IF NEEDED FOR BP AND HR CONTROL, PLAN PER DILIP IS TO SEND PT TO ICU IF NEEDED FOR BP SUPPORT WHILE WAITING FOR SPEECH THERAPY EVAL. TERMINAL OPERATIONS SUPERVISOR NOTIFIED AND NIGHTSHIFT RN NOTIFIED. PT HAS AUDIBLE WHEEZING. PER MD NO CPAP D/T PT INABILITY TO HANDLE OWN SECRETIONS. BP HYPOTENSIVE T/O SHIFT MAP ABOVE 65. NO CP OR PRESSURE NOTED. PT HAS FULL MOBILITY OF R ARM AND R LEG. DECREASED MOBILITY OF L LEG AND L ARM REMAINS FLACCID. OXGYEN SATURATION MAINTAINED ABOVE 92% ON 4 L VIA NC. PT FREQUENTLY SUCTIONED AND PROVIDED WITH ORAL CARE. ST UNABLE TO ASSESS D/T PT INABILITY TO HANDLE SECRETIONS. DILIP STARR AT BEDSIDE AT END OF SHIFT. [place] PALLIATIVE RN AT BEDSIDE TO DISCUSS PLAN OF CARE WITH FAMILY. PT CONFUSED AT TIMES. ABLE TO RESPOND IN 1-2 WORD SENTENCES SLOWLY. PT HAS GARBLED SPEECH. NO CP OR PRESSURE REPORTED. CALL LIGHT WITHIN REACH OF R HAND. BED ALARM IN PLACE. REPORT GIVEN TO NIGHTSHIFT RN.
[2023-03-24 00:34] VITALS: BP 98/76
--- NOTE | 2023-03-24 01:00 | NUR ---
UPDATE PT HYPOTENSIVE, AFIB WITH RATE GREATER THAN 130S. ANALYSIS INTERN RESIDENT NOTIFIED, ORDER FOR AMIO GTT. PT CONFUSED BUT MORE ALERT AND ABLE TO TALK IN FULL SENTENCES AT THIS TIME.
[2023-03-24 02:30] VITALS: BP 99/85
[2023-03-24 02:45] VITALS: BP 93/62
[2023-03-24 03:30] VITALS: BP 81/54
[2023-03-24 04:00] VITALS: BP 95/68
[2023-03-24 05:00] VITALS: BP 100/67
--- NOTE | 2023-03-24 05:35 | NUR ---
SHIFT SUMMARY LETHARGIC, ORIENTED TO SELF. L. SIDE FLACCID. OPENS EYES TO VERBAL/PAINFUL STIMULI. MENTATION WAXES/WANES. TELE AFIB CURRENTLY 90-130, AMIO GTT INFUSING PER EMAR. BP SOFT BUT IMPROVING T/O SHIFT, MAP >65. SPO2 >92% ON 4L NC, AUDIBLE WHEEZES, COARSE BILATERAL LUNG SOUNDS. PG TO HU[place]ON. BED IN LOWEST POSITION WITH CALL LIGHT IN REACH. WILL CONTINUE TO MONITOR AND REPORT TO ONCOMING RN.
[2023-03-24 06:27] LABS: Hematocrit 33.7 % (33.0-51.0); Hemoglobin 10.6 g/dL (11.5-16.0); Mean Corpuscular HGB 27.2 pg (26.0-34.0); Mean Corpuscular HGB Conc 31.5 g/dL (31.5-36.5); Mean Corpuscular Volume 87 fL (80-100); Mean Platelet Volume 9.6 fL (9.1-12.4); NRBC ABSOLUTE 0.02 K/mm3 (0.00-0.02); NRBC Auto 0.1 /100 WBC (0.0-0.2); Platelet Count 234 K/mm3 (150-400); RDW Coefficient Variation 17.2 % (11.7-14.2); RDW Standard Deviation 53.9 fL (35.1-46.3); Red Blood Cell Count 3.89 M/mm3 (3.80-5.20); White Blood Cell Count 16.32 K/mm3 (4.00-11.30)
[2023-03-24 06:49] LABS: Bun/Creatinine Ratio 18.1 (12.0-20.0); Calcium, Blood 9.1 mg/dL (8.5-10.1); Creatinine, Blood 2.48 mg/dL (0.40-1.00); Potassium, Blood 3.6 mmol/L (3.5-5.5)
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
--- NOTE | 2023-03-24 12:22 | NUR ---
Pt resting in bed upon arrival with her eyes closed. Pt's Primary RN Kelley at bedside. ST evaluated Pt and recommendations are for Pt to remain NPO. Called and spoke with Pt's grandson Eben who is Pt's MPOA and reviewed ST recommendations. Eben would like to move forward with comfort care. Offered therapeutic listening and answered questions. Eben expresses appreciation and reports no other concerns at this time. Spoke with Dr Ly and discussed case. Placed comfort care order, comfort care order set, and D/C maintenance medications per V/O from Dr Ly. Palliative Care will remain available for symptom management and therapeutic visits.
--- NOTE | 2023-03-24 18:57 | NUR ---
Patient transitioned to comfort care this am, pt resting in bed, repositioned for comfort. Offered a shane catheter this am, pt denied. Will continue to monitor.
--- NOTE | 2023-03-25 04:22 | NUR ---
SHIFT SUMMARY: PT ALERT, RESPONDS TO VERBAL STIMULI. REMAINS COMFORT CARE MEASURES ONLY. REPOS Q2 THIS SHIFT. MEDICATED PER EMAR. WILL REPORT TO ONCOMING RN.
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
--- NOTE | 2023-03-25 18:15 | NUR ---
SHIFT SUMMARY PT REMAINED ALERT AND ORIENTED X3, SHE HAS BEEN ABLE TO MAKE HER NEEDS KNOWN. SPEECH IS GARBLED. L SIDE NOTED TO BE FLACCID. Q2 TURNING IMPLIMENTED TO KEEP OFF PRESSURE POINTS WELL TO MAINTAIN COMFORT. PT DENIED FEELINGS OF PAIN T/O SHIFT. BREATHING HAS APPEARED UNLABORED. PT DENIED FEELING SOB. PT REQUESTED COFFEE AND NEEDED ASSISTANCE TO DRINK, BED ELEVATED TO 90 DEGREES, PT AND PT GRANDSON EDUCATED REGARDING ASPIRATION RISKS. ATTENDS ARE IN PLACE AND ARE CLEAN/DRY. IV IS SALINE LOCKED. CALL LIGHT IS W/IN REACH.
--- NOTE | 2023-03-26 04:22 | NUR ---
SHIFT SUMMARY: PT ALERT TO SELF, RESPONDS TO VERBAL STIMULI AND MAKE NEEDS KNOWN. MEDICATED PER EMAR FOR AIR HUNGER, RESPIRATIONS SHALLOW, RESP 14-16. THIS RN SPOT CHECKED SPO2, >82%. REPOS Q2 FOR COMFORT. ATTENDS IN PLACE. BED IN LOW, CALL LIGHT IN REACH, WILL REPORT TO ONCOMING RN.
--- NOTE | 2023-03-26 09:09 | NUR ---
CARE NOTE PT APPEARS COMFORTABLE AT THIS TIME. BREATHING APPEARS UNLABORED.
--- NOTE | 2023-03-26 11:29 | NUR ---
CARE/TRANSFER NOTE THIS NURSE GAVE REPORT ON PT TO OLAF KNIGHT FROM SURGICAL FLOOR. PT LEFT PCU AT APPROX. 1125. THIS RN CALLED GRANDRAZIA STARR TO NOTIFY HIM OF TRANSFER TO SURGICAL UNIT W/ NO ANSWER.
--- NOTE | 2023-03-26 18:27 | NUR ---
PT REPOSITIONED ON L SIDE WITH PILLOWS FLOATING R LET AND L ARM. PT HAD LARGE WET ATTENDS AND WAS CHANGED. PT APPEARS COMFORTABLE. BREATHING EVEN AND UNLABORED. OFFERED PAIN MEDICATION AND DECLINED. GRANDSON AT BEDSIDE T/O AFTERNOON. GRANDSON ALSO REQUESTING [facility] AND WISHES TO BE CONTACTED IF PT IS FELT TO BE IMMINENT WELL IF SHE PASSES IN THE NIGHT.
--- NOTE | 2023-03-27 05:44 | NUR ---
SHIFT SUMMARY COMFORT CARE/ DNR, SLEPT T/O NIGHT, EASILY AROUSABLE AND ANSERS APPROPRIATELY, PT INFORMED SHE IS IN THE HOSPITAL. INCONT X1 THIS SHIFT, ATTENDS IN PLACE. MINIMAL ORAL CARE PROVIDED USING SPONGE 1X AND PT CLENCHED LIPS TO PREVENT FURTHER CARE. REPOSITIONED Q2 W/ PT PREFERS ABILITY TO MOVE R LEG. SCOPOLOMINE PATCH CHANGED THIS SHIFT ORDERED. NO VISITORS THIS SHIFT. PT DENIES PAIN T/O NIGHT. NO ACUTE CHANGES. CALL LIGHT W/IN REACH ALTHOUGH UNSURE IF ABLE TO APPROPRIATELY USE.
--- NOTE | 2023-03-27 07:09 | NUR ---
BEDSIDE REPORT PT RESTING WITH EYES CLOSED WHEN ENTERED, OPENED EYES WHEN HEARD NAME. DOES NOT APPEAR TO BE IN DISTRESS AT THIS TIME.
--- NOTE | 2023-03-27 10:03 | NUR ---
[place]/PALLIATIVE CARE IN TO SEE PTNilda
--- NOTE | 2023-03-27 10:12 | NUR ---
Comfort Care Visit Pt resting with her eyes closed. Pt remains with her eyes closed with gentle touch and moderate level of verbal stimuli. Pt appears comfortable with no S/S of distress at this time. Pt appears to be transitioning and may benefit from remaining in the hospital in order to maintane a peaceful and comfortable transition. Trever Treadwell at bedside. Offered supportive conversation and changes Pt is experiencing. Spoke with Primary RN Lisa and discussed case. Palliative Care will remain available
--- NOTE | 2023-03-27 10:13 | NUR ---
RO CHERRY, BEDSIDE. PT RESTING WITH EYES CLOSED. PAUSES IN RESPIRATIONS NOTED.
--- NOTE | 2023-03-27 14:31 | NUR ---
RESTING WITH EYES CLOSED PAUSES IN BREATHING LASTING SEVERAL SECONDS NOTED.
--- NOTE | 2023-03-27 15:21 | NUR ---
RO/DILIP IN TO SEE PT.
--- NOTE | 2023-03-27 17:16 | NUR ---
resting w/eyes closed. pauses in breathing continue.
--- NOTE | 2023-03-27 17:24 | NUR ---
SUMMARY NO ACUTE CHANGES T/O SHIFT. COMFORT CARE PERFORMED. PT DOES NOT APPEAR TO BE IN ANY DISCOMFORT. PAUSES IN RESPIRATIONS NOTED T/O SHIFT. DILIP IN TWICE DURING SHIFT TO SEE PT.
--- NOTE | 2023-03-27 17:40 | NUR ---
PT AWAKE WHEN ASKED IF DOING OKAY, NODDED HEAD YES. WHEN ASKED IF WARM ENOUGH, NODDED YES.
--- NOTE | 2023-03-27 18:01 | NUR ---
AWAKE REPOSITIONED. PT DENIES PAIN WHEN ASKED.
--- NOTE | 2023-03-28 04:34 | NUR ---
SHIFT SUMMARY NO CHANGES T/O SHIFT. PT BECAME RESTLESS, WAS THEN MEDICATED PER EMAR. PT ABLE TO REST COMFORTABLY AFTER. NO CHANGES IN WOB. COMRFORT CARE WAS PROVIDED.
--- NOTE | 2023-03-28 10:19 | NUR ---
BREATHING W/SEVERAL SECOND PAUSES.
--- NOTE | 2023-03-28 11:07 | NUR ---
Comfort Care Visit Pt resting in bed with her eyes opened and moaning. Pt appears anxious and painful. Pt less responsive today and skin more dusky. Spoke with Primary RN Carlos Eduardo and discussed case. Carlos Eduardo will offer Roxanol for comfort. Palliative Care will remain available
--- NOTE | 2023-03-28 13:26 | NUR ---
resting with eyes open. breathing rhythm remains unchanged.
--- NOTE | 2023-03-28 14:20 | NUR ---
NO CHANGES IN WOB.
--- NOTE | 2023-03-28 14:51 | NUR ---
Spiritual Care Visit. Pt. is a comfort care Pt. and is mostly non repsonsive. Pts. eyes remain open. Offered words of comfort and prayer for the Pt. Will remain avilable to Pt. and or family.
--- NOTE | 2023-03-28 16:14 | NUR ---
PT'S BREATHING BECOMING MORE IRREGULAR. ADMINISTERED ATROPINE FOR SECRETIONS. NOTIFIED GRANDSONRO OF CHANGE IN PT'S BREATHING.
--- NOTE | 2023-03-28 18:19 | NUR ---
SUMMARY PT'S BREATHING HAS BECOME MORE ERRATIC SHIFT HAS PROGRESSED. IS NOT RESPONDING TO VERBAL OR PHYSICAL STIMULI THIS EVENING. NOTIFIED PT'S GRANDSON, RO, OF PT'S CHANGE IN CONDITION; CAME IN THIS AFTERNOON AND VISITED PT.
--- NOTE | 2023-03-28 19:57 | NUR ---
UPDATE RO CHERRY, IN THE ROOM. TALKED WITH HIM. WILL CALL IF ANYTHING CHANGES
--- NOTE | 2023-03-28 20:40 | NUR ---
UPDATE GRANDSON AT BEDSIDE. CHECKED ON PT, FOUND NOT BREATHING, LISTENED FOR HEART BEAT, NONE HEARD. CHARGE NURSE NOTIFIED, ASSESSED BY CHARGE, COMFIRMED NO HEART BEAT. GAVE SUPPORT TO FAMILY AT BEDSIDE. GAVE A CALL TO THE HOSPITALIST. FAMILY TAKING TIME WITH CASPER.
--- NOTE | 2023-03-28 20:59 | NUR ---
PT FOUND NOT RESPONDING. GRANDSON TEARFUL AT BEDSIDE. PRIMARY RN ASSESSED FOR HEART BEAT, THIS RN CONFIRMED ABSENCE OF HEART BEAT. HOSPITALIST TSERING ORNELAS NOTIFIED. NURSING CONVEYOR LINE BAKERY WORKER NOTIFED. SUPPORT PROVIDED TO DILIP.
--- NOTE | 2023-03-28 21:58 | NUR ---
SUMMARY PT AND BELONGINGS SENT WITH HOME. [facility] PER FAMILY REQUEST. MERCHANDISING PROFESSOR, ELIJAH, CAME AND PICKED UP AT [phone]
== END 2023-03-28 21:50 | DRG 291 ==
LOC: ER 22:30 → SURS 03-22 05:10 → PCU 03-22 05:10 → SURS 03-26 11:50
PROVIDERS: Family Medicine; Internal Medicine; Student in an Organized Health Care Education/Training Program; ADMIT Student in an Organized Health Care Education/Training Program
PROC: 0HBEXZZ Excision of Left Lower Arm Skin, External Approach (ICD-10-PCS; 2023-03-22)
PROC: 5A09357 Assistance with Respiratory Ventilation, Less than 24 Consecutive Hours, Continuous Positive Airway Pressure (ICD-10-PCS; principal; 2023-03-23)
DX: I13.0 Hypertensive heart and chronic kidney disease with heart failure and stage 1 through stage 4 chronic kidney disease, or unspecified chronic kidney disease (principal); I50.21 Acute systolic (congestive) heart failure; I63.311 Cerebral infarction due to thrombosis of right middle cerebral artery; E44.0 Moderate protein-calorie malnutrition; N39.0 Urinary tract infection, site not specified; N18.4 Chronic kidney disease, stage 4 (severe); I69.354 Hemiplegia and hemiparesis following cerebral infarction affecting left non-dominant side; I48.91 Unspecified atrial fibrillation; Z66 Do not resuscitate; Z51.5 Encounter for palliative care; D63.1 Anemia in chronic kidney disease; I27.20 Pulmonary hypertension, unspecified; I08.1 Rheumatic disorders of both mitral and tricuspid valves; Z20.822 Contact with and (suspected) exposure to COVID-19; J44.9 Chronic obstructive pulmonary disease, unspecified; K59.00 Constipation, unspecified; E78.5 Hyperlipidemia, unspecified; F10.90 Alcohol use, unspecified, uncomplicated; F41.9 Anxiety disorder, unspecified; K21.9 Gastro-esophageal reflux disease without esophagitis; S51.012A Laceration without foreign body of left elbow, initial encounter; I73.9 Peripheral vascular disease, unspecified; D50.9 Iron deficiency anemia, unspecified; W18.30XA Fall on same level, unspecified, initial encounter; F03.90 Unspecified dementia, unspecified severity, without behavioral disturbance, psychotic disturbance, mood disturbance, and anxiety; I95.9 Hypotension, unspecified; B96.20 Unspecified Escherichia coli [E. coli] as the cause of diseases classified elsewhere; R47.1 Dysarthria and anarthria; Z68.20 Body mass index [BMI] 20.0-20.9, adult; Z90.89 Acquired absence of other organs; Z90.710 Acquired absence of both cervix and uterus; Z90.49 Acquired absence of other specified parts of digestive tract; Z79.899 Other long term (current) drug therapy; Z79.01 Long term (current) use of anticoagulants; Z79.51 Long term (current) use of inhaled steroids; Z98.890 Other specified postprocedural states; Z86.718 Personal history of other venous thrombosis and embolism; Z87.19 Personal history of other diseases of the digestive system; Z87.891 Personal history of nicotine dependence; Z85.42 Personal history of malignant neoplasm of other parts of uterus; Z88.5 Allergy status to narcotic agent; Z88.1 Allergy status to other antibiotic agents
CPT/HCPCS: 0241U; 36415; 70450; 71045; 73070; 80048; 80053; 81001; 83735; 83880; 85025; 85027; 87077; 87086; 87186; 92610; 93005; 93010; 93306; 94640; 94660; 94664; 94762; 96374-59; 96375-59; 97162; 97530; 99285-25; A9270; C1751; J0282; J0696; J1940; J3480; J7030; J7050; J7060; P9046